=== PATIENT | female | born 1955 | race Caucasian/White ===

== ENCOUNTER 2025-01-07 09:53 | Outpatient (OUT) | payer MEDICARE, SELFPAY ==
--- NOTE | 2025-01-07 09:57 | MM_ITS ---
Patient Name: BORIS JAMES MR#: [id number] : 1955 Exam Date: 01/07/2025 Ordering Doctor: MADHU Knox CNP RADIOLOGY REPORT PROCEDURE: MM TOMOSYNTHESIS SCREENING BI COMPARISON: None. INDICATIONS: Annual screening Calculator Name NCI Breast Cancer Risk Assessment Tool 5 Year Breast Cancer Risk 2.40% Lifetime Breast Cancer Risk 6.60% Personal Breast Cancer No Personal Ovarian Cancer No Treatments None Family Cancers Mother with unknown cancer at age 42; Aunt-maternal with breast cancer at age ~55; Grandmother-maternal with breast cancer at age ~55. LOCATION: [facility] BREAST COMPOSITION: There are scattered areas of fibroglandular density. FINDINGS: RIGHT BREAST: No significant suspicious finding. LEFT BREAST: No significant suspicious finding. There are a few punctate benign-appearing calcifications on the left. DIAGNOSTIC CATEGORY 2--BENIGN FINDING: RECOMMENDATIONS: ROUTINE MAMMOGRAM AND CLINICAL EVALUATION IN 12 MONTHS. PLEASE NOTE: A NORMAL MAMMOGRAM DOES NOT EXCLUDE THE POSSIBILITY OF BREAST CANCER. A CLINICALLY SUSPICIOUS PALPABLE LUMP SHOULD BE BIOPSIED. Dictated by: Renny Olivera MD on 01/08/2025 at 10:05 Approved by: Renny Olivera MD on 01/08/2025 at 10:09
== END 2025-01-07 09:54 | disposition home or self-care (01) ==
LOC: MAMMO 09:53
PROVIDERS: PCP Nurse Practitioner; Visit Provider Nurse Practitioner
DX: Z12.31 Encounter for screening mammogram for malignant neoplasm of breast (principal); Z80.3 Family history of malignant neoplasm of breast
CPT/HCPCS: 77063; 77067

== ENCOUNTER 2025-08-28 08:29 | Outpatient (OUT) | payer MEDICARE, SELFPAY ==
--- OUTSIDE RECORDS SUMMARY | 2025-08-28 08:33 | XMS_ITS | Encounter Summary ---
Author Organization [facility] Address [address] [place] [address] Care Team Providers Care Carboy Filler Name Role Phone Roxie Knox NP Unavailable [phone] Roxie Knox NP Unavailable [phone] John Collier MD Primary Care Provider [phone] Roxie Knox NP Unavailable [phone] Encounter Details Date Type Department Care Team (Late st Contact Info) Description 02/22/2024 Orders Only [facility] [address] [place] [address] Roxie Knox NP [address] [place] [address] Social History Tobacco Use Types Packs/Day Years Used Date Smoking Tobacco: Former Cigarettes 1 25 Smokeless Tobacco: Never Alcohol Use Standard Drinks/Week Comments Yes 1 (1 standard drink = 0.6 oz pur e alcohol) coffee:2cups daily Humiliation, Afraid, Rape, and Kick questionnair e Answer Date Recorded Within the last year, have y ou been afraid of your partner or ex-partner? No 10/23/2023 Within the last year, have y ou been humiliated or emotionally abused in other ways by your partner or ex-partner? No Within the last year, have y ou been kicked, hit, slapped, or otherwise physically hurt by your partner or ex-partner? No 10/23/2023 Within the last year, have y ou been raped or forced to have any kind of sexual activity by your partner or ex-partner? No 10/23/2023 Social Connection and Isolation Panel Answer Date Recorded In a typical week, how many times do you talk on the phone with family, friends, or neighbors? More than three times a week 10/23/2023 How often do you get togethe r with friends or relatives? Once a week 10/23/2023 How often do you attend [facility] or orthodox services? More than 4 times per year 10/23/2023 Do you belong to any clubs o r organizations such as christianity groups, unions, fraternal or athletic groups, or school groups? No 10/23/2023 How often do you attend meet ings of the clubs or organizations you belong to? Never 10/23/2023 Are you , , di vorced, , never , or living with a partner? 10/23/2023 AUDIT-C Answer Date Recorded Q1: How often do you have a drink containing alcohol? Monthly or less 10/23/2023 Q2: How many drinks containi ng alcohol do you have on a typical day when you are drinking? Patient does not drink Q3: How often do you have si x or more drinks on one occasion? Never 10/23/2023 Overall Financial Resource Strain (CARDIA) Answe r Date Recorded How hard is it for you to pa y for the very basics like food, housing, medical care, and heating? Not very hard 10/23/2023 PHQ-2 Answer Date Recorded Patient Health Questionnaire-2 Score 0 02/12/2024 [facility] - Occupational Stress Questionnaire Answer Date Recorded Do you feel stress - tense, restless, nervous, or anxious, or unable to sleep at night because your mind is troubled all the time - these days? Not at all 10/23/2023 Exercise Vital Sign Answer Date Recorde d On average, how many days pe r week do you engage in moderate to strenuous exercise (like a brisk walk)? 4 days 10/23/2023 On average, how many minutes do you engage in exercise at this level? 30 min 10/23/2023 Hunger Vital Sign Answer Date Recorded Within the past 12 months, y ou worried that your food would run out before you got the money to buy more. Never true 10/23/20 Within the past 12 months, t he food you bought just didn't last and you didn't have money to get more. Never true 10/23/2023 PRAPARE - Transportation Answer Date Re corded In the past 12 months, has l ack of transportation kept you from medical appointments or from getting medications? No 10/13 In the past 12 months, has l ack of transportation kept you from meetings, work, or from getting things needed for daily living? No 10/23/2023 Housing Stability Vital Sign Answer Tao e Recorded In the last 12 months, was t here a time when you were not able to pay the mortgage or rent on time? No 10/23/2023 In the last 12 months, how many places have you lived? 1 10/23/2023 In the last 12 months, was t here a time when you did not have a steady place to sleep or slept in a detention (including now)? No 10/23/2023 Comments Unknown Sex and Gender Information Value Date Recorded Sex Assigned at Not on file Legal Sex Female 1:46 PM EDT Gender Identity Not on file Sexual Orientation Not on file documented as of this encounter Plan of Treatment Not on file documented as of this encounter Procedures Procedure Name Priority Date/Time Associated Diagnosis Comments MISCELLANEOUS LAB TEST Routine 02/22/2024 8:57 AM EDT documented in this encounter Results * - Miscellaneous Test (02/22/2024 8:57 AM EDT) us Roxie Knox NP LAB BLOOD ORDERABLES Final Resu lt documented in this encounter Visit Diagnoses Not on filedocumented in this encounter Additional Health Concerns Assessment Noted Time PHQ-9 Depression Total Score: 0 10/30/20 9:34 AM EST documented as of this encounter Care Teams Carboy Filler Relationship Specialty Start Date End Date Roxie Knox NP [address] [place] [address] PCP - Chanell BRISCOE 07/14/23 John Collier MD [address] [place] [address] PCP - General Family Medicine 02/12/24 Roxie Knox NP Nurse Practitioner Family Medicine 07/14/23 Roxie Knox NP Nurse Practitioner Family Medicine 02/12/24 documented as of this encounter
--- OUTSIDE RECORDS SUMMARY | 2025-08-28 08:33 | XMS_ITS | Encounter Summary ---
Author Organization [facility] Address [address] [place] [address] Care Team Providers Care Narcotics Agent Name Role Phone Roxie Knox HISTOLOGICAL ILLUSTRATOR Unavailable [phone] Roxie Knox NP Unavailable [phone] John Collier MD Primary Care Provider [phone] John Collier MD Primary Care Provider [phone] Roxie Knox NP Unavailable [phone] Encounter Details Date Type Department Care Team (Late st Contact Info) Description 10/29/2023 Abstract [facility] [address] [place] [address] Roxie Knox HISTOLOGICAL ILLUSTRATOR [address] [place] [address] Social History Tobacco Use Types Packs/Day Years Used Date Smoking Tobacco: Former Cigarettes 1 25 Humiliation, Afraid, Rape, and Kick questionnair e [...] week 10/23/2023 How often do you attend [facility] or zoroastrianism services? More than 4 times per year 10/23/2023 Do you belong to any clubs o r organizations such as bahai groups, unions, fraternal or athletic groups, or [...] Date Recorded Patient Health Questionnaire-2 Score 0 10/30/2023 [facility] - Occupational Stress [...] money to buy more. Never true 10/23/20 23 Within the past 12 months, t he [...] place to sleep or slept in a retirement (including now)? No 10/23/2023 Comments Unknown Sex and Gender Information Value Date Recorded Sex Assigned at Not on file Legal Sex Female 1:46 PM EDT Gender Identity Not on file Sexual Orientation Not on file documented as of this encounter Functional Status * Over the past 2 weeks, how often have you been bothered by any of the following problems? Question Answer Date of Assessment Author Little interest or pleasure in doing things Not at all 10/30/2023 9:34 AM Sadie Dunbar MA Feeling down, depressed, or hopeless Not at all 10/30/2023 9:34 AM Sadie Dunbar MA Patient Health Questionnaire-2 Score 0 10/30/2023 9:34 AM Brittany Dunbar MA * Question Answer Date of Assessment Author Trouble falling or staying asleep, or sleeping too much Not at all 10/30/2023 9:34 AM Matilda Sung MA Feeling tired or having little energy Not at all 10/30/2023 9:34 AM Sadie Dunbar MA Poor appetite or overeating Not at all 10/30/2023 9: 34 AM Matilda Dunbar MA Feeling bad about yourself - or that you are a failure or have let yourself or your family down Not at all 10/30/2023 9:34 AM Sadie Dunbar MA Trouble concentrating on things, such as reading the newspaper or watching television Not at all 10/30/2023 9:34 AM Sadie Dunbar MA Moving or speaking so slowly that other people could have noticed? Or the opposite - being so fidgety or restless that you have been moving around a lot more than usual. Not at all 10/30/2023 9:34 AM Matilda Silva MA Thoughts that you would be better off or hurting yourself in some way Not at all 10/30/2023 9:34 AM Comfort Dunbar MA Patient Health Questionnaire-9 Score 0 10/30/2023 9:34 AM Brittany Dunbar MA documented as of this encounter Plan of Treatment Not on file documented as of this encounter Visit Diagnoses Not on filedocumented in this encounter Care Teams Narcotics Agent Relationship Specialty Start Date End Date Roxie Knox NP [address] [place] [phone] PCP - Chanell BRISCOE 07/14/23 John Collier MD [address] [place] [address] PCP - General Family Medicine 10/27/23 02/11/24 John Collier MD [address] [place] [phone] PCP - General Family Medicine 02/12/24 Roxie Knox NP Nurse Practitioner Family Medicine 07/14/23 Roxie Knox NP Nurse Practitioner Family Medicine 02/12/24 documented as of this encounter
--- OUTSIDE RECORDS SUMMARY | 2025-08-28 08:34 | XMS_ITS | Clinical Summary ---
Author Organization [facility] Address [address] [place] [address] Care Team Providers Care Professor Of Genetics Name Role Phone Roxie Knox NP Unavailable [phone] Roxie Knox NP Unavailable [phone] John Collier MD Primary Care Provider [phone] Roxie Knox NP Unavailable [phone] Allergies Active Allergy Reactions Criticality Noted Date Comments Irbesartan Cough 10/27/2023 Sertraline Cough 10/27/2023 Medications lansoprazole (Prevacid) [address] capsule Take 15 mg by mouth in the morning. Take before meals. Do not crush or chew.. Active cholecalciferol (Vitamin D-3) 250 MCG (46588 UT) capsule Take 1,000 Units by mouth in the morning. Active ascorbic acid (Vitamin C) 500 MG tablet Take 500 mg by mouth in the morning. Active aspirin 325 MG tablet Take 325 mg by mouth in the morning. Active escitalopram (Lexapro) 10 MG tabletIndications:G AD (generalized anxiety disorder) Take 1 tablet (10 mg) by mouth Daily 90 tablet 5 Active ezetimibe (Zetia) 10 MG tabletIndications:M ixed hyperlipidemia TAKE ONE TABLET BY MOUTH EVERY DAY 90 tablet 5 Active telmisartan (MIcarDIS) 40 MG tabletIndications:P rimary hypertension Take 1 tablet (40 mg) by mouth Daily Take 1 tablet (40 mg) by mouth in the morning. 90 tablet 1 08/1309/23/20 Active rosuvastatin (Crestor) 10 MG tabletIndications:M ixed hyperlipidemia Take 1 tablet (10 mg) by mouth at bedtime 90 tablet 09/24/20 Active Active Problems Problem Noted Date Diagnosed Date Encounter for screening mamm ogram for malignant neoplasm of breast 11/26/2024 Mixed hyperlipidemia 07/30/2024 Assessment & Plan (05/20/2025 6:01 AM EDT): On ezetimibe therapy Check labs yearly and prn dose changes Assessment & Plan (02/17/2025 6:28 AM EDT): On statin therapy Check labs yearly and prn dose changes Assessment & Plan (01/06/2025 6:30 AM EST): Remain off of cholesterol med Dietary changes Check labs 02/04 Assessment & Plan (11/26/2024 6:34 AM EST): Remain off of cholesterol med Dietary changes Check labs 02/04 Assessment & Plan (07/30/2024 10:42 AM EDT): Remain off of cholesterol med Hand out on foods to help lower cholesterol Check labs 02/04 EFRAIN (generalized anxiety disorder) 06/18/2024 Overview (11/26/2024): PHQ 9= 11/26/24 3 EFRAIN 7= 11/26/24 3 Assessment & Plan (05/20/2025 6:02 AM EDT): Current treatment: escitalopram Assessment & Plan (02/17/2025 9:36 AM EDT): Is currently taking escitalopram daily Feels pretty good Assessment & Plan (01/06/2025 10:21 AM EST): Stopped buspar d/t side effects Is current taking escitalopram daily Fu in 6 weeks again to reassure no further ongoing falls etc. Assessment & Plan (11/26/2024 10:56 AM EST): PHQ 9 score = 4 EFRAIN 7 score= 3 Current meds: buspirone and just started escitalopram on 11/23/24 Bad dreams stopped when fluoxetine Take medication only as directed. This medication will take approximately 4-6 weeks to become effective. If any suicidal thoughts, thoughts of hurting others, or hallucinations contact the office or proceed to the Emergency Room for mental health evaluation. Medication may cause dry mouth, dizziness, and in some cases worsening in depression symptoms. Please contact the office if these occur. Assessment & Plan (10/29/2024 10:01 AM EST): Will increase fluoxetine to 20mg daily Add buspar BID, sent mail order and will call in to [facility] for 2 week supply until mail order comes Fu in 4 weeks, will call her in 2 weeks Discussed stressors and impact they are having, had great response initially until around thanksgiving which is when started getting these worsening in symptoms Relaxation, exercise Assessment & Plan (07/30/2024 10:41 AM EDT): Will continue with fluoxetine Fu in 3 months Assessment & Plan (06/18/2024 10:06 AM EDT): Will start fluoxetine at 10mg Did well on sertraline in the past, but caused cough Take medication only as directed. This medication will take approximately 4-6 weeks to become effective. If any suicidal thoughts, thoughts of hurting others, or hallucinations contact the office or proceed to the Emergency Room for mental health evaluation. Medication may cause dry mouth, dizziness, and in some cases worsening in depression symptoms. Please contact the office if these occur. Fu in 6 weeks Ganglion cyst of finger of left hand 10/30/2023 Assessment & Plan (10/30/2023 10:13 AM EST): Offered pt referral to Ortho, at this time she is asymptomatic will observe DDD (degenerative disc disease), lumbar 10/30/20 Assessment & Plan (10/30/2023 10:14 AM EST): Offered PT and Xray, declined at this time Encounter for annual wellnes s visit (AWV) in Medicare patient 10/30/2023 Assessment & Plan (11/26/2024 6:33 AM EST): .Reviewed Ht/Wt/BMI Recommend eye exam yearly Recommend dental exams twice a year Balance work/leisure activities Exercises is recommended most days of the week (appropriate as chronic conditions allow) Follow up yearly and prn Assessment & Plan (10/30/2023 10:16 AM EST): .Reviewed Ht/Wt/BMI Recommend eye exam yearly Recommend dental exams twice a year Balance work/leisure activities Exercises is recommended most days of the week (appropriate as chronic conditions allow) Follow up yearly and prn HTN (hypertension) 10/27/2023 Assessment & Plan (05/20/2025 6:00 AM EDT): Please check blood pressure daily and record DASH diet Limit caffeine Take medication as directed Contact office if chest pain, pressure, dizziness, shortness of breath, swelling legs Recommend slow position changes Current meds: telmisartan Assessment & Plan (02/17/2025 6:25 AM EDT): Please check blood pressure daily and record DASH diet Limit caffeine Take medication as directed Contact office if chest pain, pressure, dizziness, shortness of breath, swelling legs Recommend slow position changes Current meds: telmisartan Assessment & Plan (01/06/2025 6:28 AM EST): Please check blood pressure daily and record DASH diet Limit caffeine Take medication as directed Contact office if chest pain, pressure, dizziness, shortness of breath, swelling legs Recommend slow position changes Current meds: telmisartan Assessment & Plan (11/26/2024 6:33 AM EST): Please check blood pressure daily and record DASH diet Limit caffeine Take medication as directed Contact office if chest pain, pressure, dizziness, shortness of breath, swelling legs Recommend slow position changes Current meds: telmisartan Assessment & Plan (07/30/2024 10:40 AM EDT): Stable at this time no changes to med/doses Assessment & Plan (06/18/2024 10:05 AM EDT): Stable no changes in med/dose Assessment & Plan (05/14/2024 11:11 AM EDT): Stable on current medications, recommend low sodium intake Fu in 4 months Assessment & Plan (02/12/2024 9:41 AM EDT): Stable on current medications, recommend low sodium intake Fu in 4 months Resolved Problems Problem Noted Date Diagnosed Date Resolved Date UTI symptoms 01/13/2025 05/20/2025 Colon cancer screening 02/12/202405/14 Assessment & Plan (02/12/2024 9:42 AM EDT): After 04/13/24 due for cologuard test Will send order now Cannot do colonoscopy secondary to not having a ride to get it done Hypercholesterolemia 10/27/2023 024 Assessment & Plan (06/18/2024 10:06 AM EDT): Consider at fu appt to trial zetia Assessment & Plan (05/14/2024 11:12 AM EDT): Unclear if her side effects that she describes are truly related to med side effect, none the less, we will temporarily stop her statin for the next 4 weeks to see if sxs resolve, if they do we can consider trial of a different statin drug Fu in 4 weeks Assessment & Plan (02/12/2024 9:41 AM EDT): Has been taking meds as directed, trying lower fat options Will recheck labs Titrate meds as needed Encounters Date Type Department Care Team Description 06/26/2025 Results Follow-Up [facility] [address] [place] [address] Matilda Miranda MA Lipid panel, ALT, AST 06/26/2025 Refill [facility] [address] [phone] Roxie Knox NP Mixed hyperlipidemia (Primary Dx) 06/25/2025 Refill [facility] [address] [place] [address] Roxie Knox NP Primary hypertension from Last 3 Months Family History Medical History Relation Name Comments Cancer Mother Relation Name Status Comments Mother Social History Tobacco Use Types Packs/Day Years Used Date Smoking Tobacco: Former Cigarettes 1 25 Smokeless Tobacco: Never Tobacco Cessation:Counseling Given: Not Answered Alcohol Use Standard Drinks/Week Comments Yes 1 (1 standard drink = 0.6 oz pur e alcohol) coffee:2cups daily B1300 Health Literacy Answer Date Recor ded How often do you need to hav e someone help you when you read instructions, pamphlets, or other written material from your doctor or pharmacy? Never 11/19/2024 Humiliation, Afraid, Rape, and Kick questionnair e [...] neighbors? More than three times a week 11/19/2024 How often do you get togethe r with friends or relatives? Once a week 11/19/2024 How often do you attend chur or rastafarian services? More than 4 times per year 11/19/2024 Do you belong to any clubs o r organizations such as baptist groups, unions, fraternal or athletic groups, or school groups? No 11/19/2024 How often do you attend meet ings of the clubs or organizations you belong to? Never 11/19/2024 Are you , , di vorced, , never , or living with a partner? 11/19/2024 AUDIT-C Answer Date Recorded Q1: How often do you have a drink containing alcohol? 4 or more times a week 11/19/2024 Q2: How many drinks containi ng alcohol do you have on a typical day when you are drinking? 1 or 2 Q3: How often do you have si x or more drinks on one occasion? Less than monthly 11/19/2024 Overall Financial Resource Strain (CARDIA) Answe r Date Recorded How hard is it for you to pa y for the very basics like food, housing, medical care, and heating? Not very hard 11/19/2024 PHQ-2 Answer Date Recorded Patient Health Questionnaire-2 Score 0 11/26/2024 [facility] - Occupational Stress Questionnaire Answer Date Recorded Do you feel stress - tense, restless, nervous, or anxious, or unable to sleep at night because your mind is troubled all the time - these days? Very much 11/19/2024 Exercise Vital Sign Answer Date Recorde d On average, how many days pe r week do you engage in moderate to strenuous exercise (like a brisk walk)? 5 days 11/19/2024 On average, how many minutes do you engage in exercise at this level? 50 min 11/19/2024 Hunger Vital Sign Answer Date Recorded Within the past 12 months, y ou worried that your food would run out before you got the money to buy more. Never true 11/19/19 25 Within the past 12 months, t he food you bought just didn't last and you didn't have money to get more. Never true 11/19/2024 PRAPARE - Transportation Answer Date Re corded In the past 12 months, has l ack of transportation kept you from medical appointments or from getting medications? No 05/2025 In the past 12 months, has l ack of transportation kept you from meetings, work, or from getting things needed for daily living? No 11/19/2024 Housing Stability Vital Sign Answer Tao e [...] place to sleep or slept in a snf (including now)? No 10/23/2023 Housing Stability Vital Sign Answer Tao e Recorded In the last 12 months, was t here a time when you were not able to pay the mortgage or rent on time? No 11/19/2024 In the past 12 months, how m any times have you moved where you were living? 0 11/19/2024 At any time in the past 12 m [facility], were you homeless or living in a snf (including now)? No 11/19/2024 Comments Unknown Sex and Gender Information Value Date Recorded Sex Assigned at Not on file Legal Sex Female 1:46 PM EDT Gender Identity Not on file Sexual Orientation Not on file Last Filed Vital Signs Vital Sign Reading Time Taken Comments Blood Pressure 140/76 05/20/2025 9:29 AM EDT Pulse 76 05/20/2025 9:29 AM EDT Temperature 36.9 C (98.5 F) 05/20/2025 9:29 AM EDT Respiratory Rate 18 05/20/2025 9:29 AM EDT Oxygen Saturation 98% 05/20/2025 9:29 AM EDT Inhaled Oxygen Concentration - - Weight 78.7 kg (173 lb 9.6 oz) 05/20/2025 9:29 A M EDT Height 172.7 cm (5' 8 ) 11/26/2024 10:10 AM EST Body Mass Index 26.4 11/26/2024 10:10 AM EST Plan of Treatment Health Maintenance Due Date Last Done Comments CT Colonography 1955 Colonoscopy 1955 FIT 1955 FOBT 1955 Sigmoidoscopy 1955 Medicare Annual Wellness (AWV) 11/26/2025 11/26/2024, 11/26/2024, 10/30/2023, Additional history exists Pneumococcal Vaccine: 65+ Years (1 of 1 - PCV) 11/26/2025 Postponed from 2003 (Patient Refused) Mammogram 01/08/2026 01/08/2025, 10/13 (Patient Refused) Colorectal Cancer Screening 02/25/2027 FIT-DNA 02/25/2027 02/26/2024, 06/11/2020, 04/13/2021 Influenza Vaccine Discontinued Procedures Procedure Name Priority Date/Time Associated Diagnosis Comments AST Routine 06/20/2025 8:44 AM EDT Mixed hyperlipidemia ALT Routine 06/20/2025 8:44 AM EDT Mixed hyperlipidemia LIPID PANEL Routine 06/20/2025 8:44 AM EDT Mixed hyperlipidemia MM TOMOSYNTHESIS SCREENING BI 01/08/2025 10:09 AM EST LAB COLOGUARD COLON CANCER SCREEN Routine 02/26/2024 5:50 AM EDT Colon cancer screening from Last 3 Months or Most Recently Relevant to Health Maintenance Results * ALT (06/20/2025 8:44 AM EDT) ALT 13 6 - 29 U/L [facility] Blood Venous blood specimen / Unknown 06/20/2025 8:44 AM EDT 06/20/2025 3:04 PM EDT Narrative [facility] - 06/21/2025 3:25 AM EDT FASTING:YES FASTING: YES Resulting Agency Comment Performing Organization Information Site ID: QTW Name: [facility] Address: [address] [place] [id number] Director: Maday Hilario us Roxie Knox NP LAB BLOOD ORDERABLES Final Resu lt [facility] * AST (06/20/2025 8:44 AM EDT) AST 20 10 - 35 U/L [facility] Blood Venous blood specimen / Unknown 06/20/2025 8:44 AM EDT 06/20/2025 3:04 PM EDT Narrative [facility] - 06/21/2025 3:25 AM EDT FASTING:YES FASTING: YES Resulting Agency Comment Performing Organization Information Site ID: QTW Name: [facility] Address: [place] [address] Director: Maday Hilario us Roxie Knox [employer]IMARY SCHOOL TEACHER LAB BLOOD ORDERABLES Final Resu lt [facility] * (ABNORMAL) Lipid panel (06/20/2025 8:44 AM EDT) CHOLESTEROL, TOTAL 284(H) <200 mg/dL [facility] HDL CHOLESTEROL 98 > OR = 50 mg/dL [facility] TRIGLYCERIDES 93 <150 mg/dL [facility] LDL CHOLESTEROL 166(H) mg/dL (calc) [facility] Comment: Reference range: <100 Desirable range <100 mg/dL for primary prevention; <70 mg/dL for patients with CHD or diabetic patients with > or = 2 CHD risk factors. LDL-C is now calculated using the Akash-Cooley calculation, which is a validated novel method providing better accuracy than the Friedewald equation in the estimation of LDL-C. Akash SS et al. SOPHY. 2013;310(19): 8440-2773 (http://education.[employer] [facility]/faq/LFA434) CHOL/HDLC RATIO 2.9 <5.0 (calc) [facility] NON HDL CHOLESTEROL 186(H) <130 mg/dL (calc) [facility] Comment: For patients with diabetes plus 1 major ASCVD risk factor, treating to a non-HDL-C goal of <100 mg/dL (LDL-C of <70 mg/dL) is considered a therapeutic option. Blood Venous blood specimen / Unknown 06/20/2025 8:44 AM EDT 06/20/2025 3:04 PM EDT Narrative [facility] - 06/21/2025 3:25 AM EDT FASTING:YES FASTING: YES Resulting Agency Comment Performing Organization Information Site ID: QPT Name: [facility] Address: [address] [place] [address] Director: Alex Peters MD us Roxie Knox NP LAB BLOOD ORDERABLES Final Resu lt [facility] * MM TOMOSYNTHESIS SCREENING BI (01/08/2025 10:09 AM EST) Anatomical Region Laterality Modality Other 01/08/2025 10:0 9 AM EST Narrative 01/08/2025 10:10 [place] [address] Mammography Report Signed Patient: BEATRICE JAMES MR#: [id number] : 1955 Acct:[id number] Age/Sex: 69 / F ADM Date: 01/07/25 Loc: MAMMO Attending Dr: Roxie Knox NP Ordering Physician: Roxie Knox NP Results: Date of Service: 01/07/25 Follow Up: Procedure(s): MM tomosynthesis screening BI Accession Number(s): [id number] cc: Roxie Knox NP Patient Name: BEATRICE JAMES MR#: [id number] : 1955 Exam Date: 01/07/2025 Ordering Doctor: MADHU Knox CNP RADIOLOGY REPORT PROCEDURE: MM TOMOSYNTHESIS SCREENING BI COMPARISON: None. INDICATIONS: Annual screening Calculator Name NCI Breast Cancer Risk Assessment Tool 5 Year Breast Cancer Risk 2.40% Lifetime Breast Cancer Risk 6.60% Personal Breast Cancer No Personal Ovarian Cancer No Treatments None Family Cancers Mother with unknown cancer at age 42; Aunt-maternal with breast cancer at age 55; Grandmother-maternal with breast cancer at age 55. LOCATION: [facility] BREAST COMPOSITION: There are scattered areas of fibroglandular density. FINDINGS: RIGHT BREAST: No significant suspicious finding. LEFT BREAST: No significant suspicious finding. There are a few punctate benign-appearing calcifications on the left. DIAGNOSTIC CATEGORY 2--BENIGN FINDING: RECOMMENDATIONS: ROUTINE MAMMOGRAM AND CLINICAL EVALUATION IN 12 MONTHS. PLEASE NOTE: A NORMAL MAMMOGRAM DOES NOT EXCLUDE THE POSSIBILITY OF BREAST CANCER. A CLINICALLY SUSPICIOUS PALPABLE LUMP SHOULD BE BIOPSIED. Dictated by: Renny Olivera MD on 01/08/2025 at 10:05 Approved by: Renny Olivera MD on 01/08/2025 at 10:09 Dictated By: Renny Olivera M.D. Signed By: 01/08/25 1010 DD/ 1009 TD/TT: Ginger Farmer: Procedure Note Radiology, Radiologist, MD - 01/08/2025 [place] [address] Mammography Report Signed Patient: BEATRICE JAMES AMR#: [id number] : 1955cct:[id number] Age/Sex: 69 / FADM Date: 01/07/25 Loc: MAMMO Attending Dr: Roxie Knox NP Ordering Physician: Roxie Knox NPResults: Date of Service: 01/07/25Follow Up: Procedure(s): MM tomosynthesis screening BI Accession Number(s): [id number] cc: Roxei Knox NP Patient Name: BEATRICE JAMES MR#: [id number] : 1955 Exam Date: 01/07/2025 Ordering Doctor: MADHU Knox CNP RADIOLOGY REPORT PROCEDURE: MM TOMOSYNTHESIS SCREENING BI COMPARISON: None. INDICATIONS: Annual screening Calculator Name NCI Breast Cancer Risk Assessment Tool 5 Year Breast Cancer Risk 2.40% Lifetime Breast Cancer Risk 6.60% Personal Breast Cancer No Personal Ovarian Cancer No Treatments None Family Cancers Mother with unknown cancer at age 42; Aunt-maternalwith breast cancer at age 55; Grandmother-maternal with breast cancer at age 55. LOCATION: [facility] BREAST COMPOSITION: There are scattered areas of fibroglandulardensity. FINDINGS: RIGHT BREAST: No significant suspicious finding. LEFT BREAST: No significant suspicious finding. There are a few punctate benign-appearing calcifications on the left. DIAGNOSTIC CATEGORY 2--BENIGN FINDING: RECOMMENDATIONS: ROUTINE MAMMOGRAM AND CLINICAL EVALUATION IN 12 MONTHS. PLEASE NOTE: A NORMAL MAMMOGRAM DOES NOT EXCLUDE THE POSSIBILITY OFBREAST CANCER. A CLINICALLY SUSPICIOUS PALPABLE LUMP SHOULD BE BIOPSIED. Dictated by: Renny Olivera MD on 01/08/2025 at 10:05 Approved by: Renny Olivera MD on 01/08/2025 at 10:09 Dictated By: Renny Olivera M.D. Signed By:01/08/25 1010 DD/ 1009 TD/TT: Ginger Farmer: us Roxie Lisette [facility] Final Result * Cologuard?? colon cancer screening (02/26/2024 5:50 AM EDT) NONINV COLON CA DNA+OCC BLD SCRN STL-IMP Negative Negative 03/05/2024 1:40 PM EDT [facility] (CLIA #:[id number]) Comment: NEGATIVE TEST RESULT. A negative Cologuard result indicates a low likelihood that a colorectal cancer (CRC) or advanced adenoma (adenomatous polyps with more advanced pre-malignant features) is present. The chance that a person with a negative Cologuard test has a colorectal cancer is less than 1 in 1500 (negative predictive value >99.9%) or has an advanced adenoma is less than 5.3% (negative predictive value 94.7%). These data are based on a prospective cross-sectional study of 10,000 individuals at average risk for colorectal cancer who were screened with both Cologuard and colonoscopy. (Myrna Barnhart al, N Engl J Med 2014;370(14):8617-6808) The normal value (reference range) for this assay is negative. COLOGUARD RE-SCREENING RECOMMENDATION: Periodic colorectal cancer screening is an important part of preventive healthcare for asymptomatic individuals at average risk for colorectal cancer. Following a negative Cologuard result, the [place] Cancer Society and U.S. Multi-Society Task Force screening guidelines recommend a Cologuard re-screening interval of 3 years. References: [place] Cancer Society Guideline for Colorectal Cancer Screening: https://www.cancer.org/cancer/daaym-khvgxd-vyerpn/yzkysioep-uxjfumdzy-lvsblez/ac s-rec ommendations.html.; Carlos DK, Mendoza CR, Jurgen CHERRY, Colorectal Cancer Screening: Recommendations for Physicians and Patients from the U.S. Multi-Society Task Force on Colorectal Cancer Screening , Am J Gastroenterology 2017; 112:0840-3832. TEST DESCRIPTION: Composite algorithmic analysis of stool DNA-biomarkers with hemoglobin immunoassay. Quantitative values of individual biomarkers are not reportable and are not associated with individual biomarker result reference ranges. Cologuard is intended for colorectal cancer screening of adults of either sex, 45 years or older, who are at average-risk for colorectal cancer (CRC). Cologuard has been approved for use by the U.S. FDA. The performance of Cologuard was established in a cross sectional study of average-risk adults aged 50-84. Cologuard performance in patients ages 45 to 49 years was estimated by sub-group analysis of near-age groups. Colonoscopies performed for a positive result may find as the most clinically significant lesion: colorectal cancer [4.0%], advanced adenoma (including sessile serrated polyps greater than or equal to 1cm diameter) [20%] or non- advanced adenoma [31%]; or no colorectal neoplasia [45%]. These estimates are derived from a prospective cross-sectional screening study of 10,000 individuals at average risk for colorectal cancer who were screened with both Cologuard and colonoscopy. (Myrna Hunter. et al, N Engl J Med 2014;370(14):2632-9272.) Cologuard may produce a false negative or false positive result (no colorectal cancer or precancerous polyp present at colonoscopy follow up). A negative Cologuard test result does not guarantee the absence of CRC or advanced adenoma (pre-cancer). The current Cologuard screening interval is every 3 years. ([place] Cancer Society and U.S. Multi-Society Task Force). Cologuard performance data in a 10,000 patient pivotal study using colonoscopy as the reference method can be accessed at the following location: www.[employer].com/results. Additional description of the Cologuard test process, warnings and precautions can be found at www.[email or web address] Mediard.com. Stool specimen (specimen) 02/26/2024 5:50 AM EDT 02/28/2024 9:10 AM EDT us Roxie Aichholz PRIMARY SCHOOL TEACHER LAB MOLECULAR DIAGNOSTICS ORDER GABE Final Result .[facility] (CLIA #:[id number]) [address] [id number] [phone] [facility] (CLIA #:[id number]) [address] [address] from Last 3 Months or Most Recently Relevant to Health Maintenance Insurance [employer] MEDICARE Care Teams Professor Of Genetics Relationship Specialty Start Date End Date Roxie Knox NP [address] [place] [id number] PCP - Chanell BRISCOE 07/14/23 John Collier MD [address] [place] [phone] PCP - General Family Medicine 02/12/24 Roxie Knox NP Nurse Practitioner Family Medicine 07/14/23 Roxie Knox NP Nurse Practitioner Family Medicine 02/12/24
--- OUTSIDE RECORDS SUMMARY | 2025-08-28 08:34 | XMS_ITS | Encounter Summary ---
Author Organization [facility] Address [address] [place] [address] Care Team Providers Care Benefits Consulting Analyst Name Role Phone Roxie Knox REVENUE SPECIALIST Unavailable [phone] Roxie Knox NP Unavailable [phone] John Collier MD Primary Care Provider [phone] John Collier MD Primary Care Provider [phone] Roxie Knox NP Unavailable [phone] Reason for Visit * Reason Onset Date Comments Med Refill 11/30/2023 Encounter Details Date Type Department Care Team (Late st Contact Info) Description 11/30/2023 Refill [facility] [address] [place] [address] Roxie Knox REVENUE SPECIALIST [address] [place] [id number] Hypercholesterolemia Social History Tobacco Use Types Packs/Day Years [...] week 10/23/2023 How often do you attend [facility] or evangelical services? More than 4 times per year 10/23/2023 Do you belong to any clubs o r organizations such as gnosticist groups, unions, fraternal or athletic groups, or [...] Recorded Patient Health Questionnaire-2 Score 0 10/30/2023 [facility] ional [facility] - Occupational Stress [...] place to sleep or slept in a long-term (including now)? No 10/23/2023 Comments Unknown Sex and Gender Information Value Date Recorded Sex Assigned at Not on file Legal Sex Female 1:46 PM EDT Gender Identity Not on file Sexual Orientation Not on file documented as of this encounter Miscellaneous Notes * Telephone Encounter - Roxie Knox NP - 12/03/2023 9:51 PM EST Already completed * Telephone Encounter - Matilda Miranda MA - 11/30/2023 2:10 PM EST Pt called to let us know the [facility] has changed their fax number to [phone] documented in this encounter Plan of Treatment Not on file documented as of this encounter Visit Diagnoses Diagnosis Hypercholesterolemia Pure hypercholesterolemia documented in this encounter Additional Health Concerns Assessment Noted Time PHQ-9 Depression Total Score: 0 10/30/20 9:34 AM EST documented as of this encounter Care Teams Benefits Consulting Analyst Relationship Specialty Start Date End Date Roxie Knox NP [address] [place] [address] PCP - Chanell [place] 07/14/23 John Collier MD [address] [place] [id number] PCP - General Family Medicine 10/27/23 02/11/24 John Collier MD [address] [place] [id number] PCP - General Family Medicine 02/12/24 Roxie Knox NP Nurse Practitioner Family Medicine 07/14/23 Roxie Knox NP Nurse Practitioner Family Medicine 02/12/24 documented as of this encounter
--- OUTSIDE RECORDS SUMMARY | 2025-08-28 08:34 | XMS_ITS | Encounter Summary ---
Author Organization [facility] Address [address] [place] [address] Care Team Providers Care Pbx Inspector Name Role Phone Roxie Knox DIRECTOR HUMAN SERVICES Unavailable [phone] Roxie Knox NP Unavailable [phone] John Collier MD Primary Care Provider [phone] Roxie Knox NP Unavailable [phone] Encounter Details Date Type Department Care Team (Late st Contact Info) Description 06/26/2025 Results Follow-Up [facility] [address] [place] [address] Matilda Miranda MA Lipid panel, ALT, AST Social History Tobacco Use Types Packs/Day Years [...] How often do you attend chur or latter day services? More than 4 times per year 11/19/2024 Do you belong to any clubs o r organizations such as evangelical groups, unions, fraternal or athletic groups, or [...] Recorded Patient Health Questionnaire-2 Score 0 11/26/2024 [facility] - [facility]ational Stress Questionnaire Answer [...] money to buy more. Never true 11/19/19 Within the past 12 months, t he [...] place to sleep or slept in a senior living (including now)? No 10/23/2023 Housing Stability Vital Sign Answer Tao e Recorded In the last 12 months, was t here a time when you were not able to pay the mortgage or rent on time? No 11/19/2024 In the past 12 months, how m any times have you moved where you were living? 0 11/19/2024 At any time in the past [address] [facility], were you homeless or living in a senior living (including now)? No 11/19/2024 Comments Unknown Sex [...] Assessment Noted Time PHQ-9 Depression Total Score: 3 11/26/19 25 10:12 AM EST documented as of this encounter Care Teams Pbx Inspector Relationship Specialty Start Date End Date Roxie Knox NP [address] [address] PCP - Chanell BRISCOE 07/14/23 John Collier MD [address] [place] [phone] PCP - General Family Medicine 02/12/24 Roxie Knox NP Nurse Practitioner Family Medicine 07/14/23 Roxie Knox NP Nurse Practitioner Family Medicine 02/12/24 documented as of this encounter
--- OUTSIDE RECORDS SUMMARY | 2025-08-28 08:36 | XMS_ITS | CCD ---
Author Organization [facility] Care Team Providers Care Chain Sales Representative Name Role Phone HOUSE, DR GREER Admitting Unavailable HOUSE, DR GREER Attending Unavailable HOUSE, DR GREER Consulting Unavailable HOUSE, DR GREER Primary Care Unavailable HOUSE, DR GREER Admitting Unavailable HOUSE, DR GREER Attending Unavailable HOUSE, DR GREER Consulting Unavailable Aichholz CERTIFIED MASTER SAFE TECHNICIAN, Roxie Unavailable Aichholz CERTIFIED MASTER SAFE TECHNICIAN, Roxie Unavailable John Collier MD Primary Care Provider Aichholz CERTIFIED MASTER SAFE TECHNICIAN, Roxie Unavailable John Collier MD Primary Care Provider Aichholz CERTIFIED MASTER SAFE TECHNICIAN, Roxie Unavailable AICHHOLZ, ROXIE Attending Unavailable AICHHOLZ, ROXIE Attending Unavailable AICHHOLZ, ROXIE Attending Unavailable AICHHOLZ, ROXIE Attending Unavailable AICHHOLZ, ROXIE Attending Unavailable AICHHOLZ, ROXIE Attending Unavailable AICHHOLZ, ROXIE Attending Unavailable Aichholz CERTIFIED MASTER SAFE TECHNICIAN-CRoxie Primary Care Provider Lisette CERTIFIED MASTER SAFE TECHNICIAN-CRoxie Attending Provider [phone] Allergies Allergy Classification Reported Allergen(s) Allergy Type Date of Onset Reaction(s) Facility (20 sources) Irbesartan Propensity to adverse reactions 3 Cough [facility] (20 sources) Sertraline Drug Allergy 3 Cough [facility] Medications Current Medications Medication Drug Class(es) Dates Sig (Normalized) Sig (Original) atorvastatin 40 mg oral tablet (4 sources) HMG-CoA Reductase Inhibitor Start: 12-25-2023 End: 03-25-2024 take 1 tablet by mouth in the morning atorvastatin (Lipitor) 40 MG tablet Indications: Hypercholesterolemia (CMS/HCC) Take 1 tablet (40 mg) by mouth in the morning. 90 tablet 1 12/26/2023 03/25/2024 Active Start: 11-30-2023 End: 12-25-2023 take 1 tablet by mouth at bedtime atorvastatin (Lipitor) 20 MG tablet Indications: Hypercholesterolemia (CMS/HCC) Take 1 tablet (20 mg) by mouth at bedtime Take 20 mg by mouth at bedtime 90 tablet 0 11/30/2023 12/25/2023 Discontinued (Ineffective) biotin 5 mg chewable tablet (1 source) Start: 08-20-2025 Biotin 5,000 mcg tablet,chewable Active MCG PO August 20, 2025 12:00am Complies with drug therapy busPIRone hydrochloride 5 mg oral tablet (8 sources) Start: 10-29-2024 End: 01-27-2025 take 1 tablet by mouth in the morning busPIRone (Buspar) 5 MG tablet Indications: EFRAIN (generalized anxiety disorder) (CMS/HCC) Take 1 tablet (5 mg) by mouth in the morning and 1 tablet (5 mg) before bedtime. 180 tablet 10/29/2024 01/06/2025 Discontinued (Side effects) calcium carbonate 1500 mg / cholecalciferol 0.01 mg oral capsule (1 source) Vitamin D Start: 08-20-2025 take 1 capsule by mouth twice daily Calcium Carbonate-Vitamin D3 600 mg-10 mcg (400 unit) capsule Active 1 CAP PO Twice daily August 20, 2025 12:00am Complies with drug therapy cholecalciferol 0.25 mg oral capsule (20 sources) Vitamin D take 1 capsule by mouth in the morning cholecalciferol (Vitamin D-3) 250 MCG (74246 UT) capsule Take 1,000 Units by mouth in the morning. Active escitalopram 10 mg oral tablet (20 sources) Serotonin Reuptake Inhibitor Start: 08-16-2025 take 1 tablet by mouth once daily Escitalopram Oxalate 10 mg tablet Active 10 MG PO Daily August 16, 2025 12:00am Complies with drug therapy Start: 11-18-2024 End: 08-03-2025 take 1 tablet by mouth once daily escitalopram (Lexapro) 10 MG tablet Indications: EFRAIN (generalized anxiety disorder) Take 1 tablet (10 mg) by mouth Daily 90 tablet 05/05/2025 08/03/2025 Active ezetimibe 10 mg oral tablet (17 sources) Dietary Cholesterol Absorption Inhibitor Start: 08-16-2025 take 1 tablet by mouth once daily Ezetimibe 10 mg tablet Active 10 MG PO Daily August 16, 2025 12:00am Complies with drug therapy Start: 05-18-2025 take 1 tablet by jose th once daily ezetimibe (Zetia) 10 MG tablet Indications: Mixed hyperlipidemia TAKE ONE TABLET BY MOUTH EVERY DAY 90 tablet 05/18/2025 Active Start: 01-13-2025 End: 04-13-2025 take 1 tablet by mouth once daily ezetimibe (Zetia) 10 MG tablet Indications: Mixed hyperlipidemia Take 1 tablet (10 mg) by mouth Daily 90 tablet 01/13/2025 Active FLUoxetine 20 mg oral capsule (14 sources) Serotonin Reuptake Inhibitor Start: 10-29-2024 End: 01-27-2025 take 1 capsule by mouth once daily FLUoxetine (PROzac) 20 MG capsule Indications: EFRAIN (generalized anxiety disorder) (CMS/HCC) Take 1 capsule (20 mg) by mouth Daily 90 capsule 10/29/2024 11/26/2024 Discontinued (Therapy completed) Start: 06-18-2024 End: 10-29-2024 take 1 capsule by mouth once daily FLUoxetine (PROzac) 10 MG capsule Indications: EFRAIN (generalized anxiety disorder) (CMS/HCC) Take 1 capsule (10 mg) by mouth Daily 90 capsule 07/30/2024 10/29/2024 Discontinued lansoprazole 15 mg delayed release oral capsule (20 sources) Proton Pump Inhibitor Start: 08-16-2025 take 1 capsule by mouth once daily Lansoprazole 15 mg capsule,delayed release(DR/EC) Active 15 MG PO Daily August 16, 2025 12:00am Complies with drug therapy take 1 capsule by mouth before m ealtime lansoprazole (Prevacid) [address] capsule Take 15 mg by mouth in the morning. Take before meals. Do not crush or chew.. Active magnesium citrate 100 mg oral tablet (1 source) Start: 08-20-2025 take 2 capsules by mouth once daily as needed Magnesium Citrate 100 mg capsule Active 200 MG PO Daily as needed August 20, 2025 12:00am celina Complies with drug therapy Multivitamin tablet (1 source) Start: 08-20-2025 take 1 tablet by mouth once daily Multivitamin tablet Active 1 TAB PO Daily August 20, 2025 12:00am Complies with drug therapy prasterone 50 mg oral capsule (20 sources) End: 02-17-2025 take 1 capsule by mouth once daily Prasterone, DHEA, (DHEA 50) 50 MG capsule Take 50 mg by mouth 1 (one) time each day 02/17/2025 Discontinued (Therapy completed) rosuvastatin calcium 10 mg oral tablet (2 sources) HMG-CoA Reductase Inhibitor Start: 06-26-2025 End: 09-24-2025 take 1 tablet by mouth once daily Rosuvastatin 10 mg tablet Active 10 MG PO Daily August 16, 2025 12:00am Complies with drug therapy sulfamethoxazole 800 mg / trimethoprim 160 mg oral tablet (3 sources) Dihydrofolate Reductase Inhibitor Antibacterial, Sulfonamide Antimicrobial Start: 01-13-2025 End: 01-19-2025 take 1 tablet by mouth once sulfamethoxazole- trimethoprim (Bactrim DS) 800-160 MG per tablet Indications: UTI symptoms Take 1 tablet by mouth every 12 (twelve) hours for 5 days 10 tablet 01/14/2025 01/19/2025 Active telmisartan 40 mg oral tablet (20 sources) Angiotensin 2 Receptor Lizbeth Start: 06-18-2024 End: 09-23-2025 take 1 tablet by mouth once daily Telmisartan 40 mg tablet Active 40 MG PO Daily August 16, 2025 12:00am Complies with drug therapy Start: 10-30-2023 End: 01-28-2024 take 1 tablet by mouth in the morning telmisartan (MIcarDIS) 40 MG tablet Indications: Primary hypertension (CMS/HCC) Take 1 tablet (40 mg) by mouth in the morning. 30 tablet 1 10/30/2023 01/28/2024 Active Completed/Discontinued Medications Medication Drug Class(es) Dates Sig (Normalized) Sig (Original) ascorbic acid 500 mg oral tablet (20 sources) Vitamin C Start: 08-16-2025 End: 08-20-2025 take 1 tablet by mouth once daily Ascorbic Acid (Vitamin C) 500 mg tablet Discontinued 500 MG PO Daily August 16, 2025 12:00am August 20, 2025 9:50am take 1 tablet by mouth in the mo rning ascorbic acid (Vitamin C) 500 MG tablet Take 500 mg by mouth in the morning. Active aspirin 325 mg oral tablet (20 sources) Platelet Aggregation Inhibitor, Nonsteroidal Anti-inflammatory Drug Start: 08-16-2025 End: 08-20-2025 take 1 tablet by mouth once daily Aspirin 325 mg tablet Discontinued 325 MG PO Daily August 16, 2025 12:00am August 20, 2025 9:49am take 1 tablet by mouth in the mo rning aspirin 325 MG tablet Take 325 mg by mouth in the morning. Active Problems Active Problems Problem Classification Problem Date Documented Date Episodic/Chronic Anxiety disorders (20 sources) Generalized anxiety disorder; Translations: [Generalized anxiety disorder] Onset: 06-18-2024 06-18-2024 Chronic Disorders of lipid metabolism (20 sources) Hyperlipidemia, unspecified; Translations: [Hypercholesterolemia ] Onset: 04-01-2021 Resolved: 07-30-2024 12-25-2023 Chronic Essential hypertension (20 sources) Essential (primary) hypertension; Translations: [Hypertensive disorder] Onset: 04-24-2020 Chronic Other connective tissue disease (20 sources) Ganglion cyst of left hand; Translations: [Ganglion, left hand] Onset: 10-30-2023 10-30-2023 Episodic Other screening for suspected conditions (not mental disorders or infectious disease) (20 sources) Patient encounter status; Translations: [Encounter for screening for malignant neoplasm of colon] Onset: 02-12-2024 Resolved: 05-14-2024 05-14-2024 Episodic Spondylosis; intervertebral disc disorders; other back problems (20 sources) Degeneration of lumbar intervertebral disc; Translations: [Other intervertebral disc degeneration, lumbar region] Onset: 10-30-2023 10-30-2023 Chronic Past or Other Problems Problem Classification Problem Date Documented Date Episodic/Chronic Genitourinary symptoms and ill-defined conditions (16 sources) Urinary symptoms ; Translations: [Unspecified symptoms and signs involving the genitourinary system] Onset: 01-13-2025 Resolved: 05-20-2025 01-13-2025 Episodic Mood disorders (20 sources) Mood disorders Onset: 10-30-2023 Resolved: 11-26-2024 10-30-2023 Results Test Name Value Interpretation Reference Range [facility] 03-04-2025 ALT [Catalytic activity/Vol] 12 U/L 6 - 29 U/L [facility] Andrea 03-04-2025 AST [Catalytic activity/Vol] 18 U/L 10 - 35 U/L [facility] Lipid 1996 panelon 5 Cholesterol [Mass/Vol] 303 mg/dL High NINF - 200 mg/dL [facility] Cholesterol in HDL [Mass/Vol] 109 mg/dL > OR = 50 [facility] Cholesterol in LDL [Mass/Vol] 173 mg/dL High mg/dL (calc) [facility] Comment on above: Reference range: <10 0 Desirable range <100 mg/dL for primary prevention; <70 mg/dL for patients with CHD or diabetic patients with > or = 2 CHD risk factors. LDL-C is now calculated using the Patricia calculation, which is a validated novel method providing better accuracy than the Friedewald equation in the estimation of LDL-C. Akash SS et al. SOPHY. 2013;310(19): 5606-0757 (http://education.Maps InDeed/faq/SHF514) Cholesterol non HDL [Mass/Vol] 194 mg/dL High [facility] Comment on above: For patients with di abetes plus 1 major ASCVD risk factor, treating to a non-HDL-C goal of <100 mg/dL (LDL-C of <70 mg/dL) is considered a therapeutic option. Cholesterol.total/Ch olesterol in HDL [Mass ratio] 2.8 {ratio} [facility] Interpretation and review of laboratory results Abnormal [facility] Triglyceride [Mass/Vol] 94 mg/dL [facility] - 150 mg/dL [facility] Performing Organization Information Site ID: QPT Name: [email or web address] Address: [address] [place] [id number] Director: Alex Peters MD [facility] No Panel Informationon 03-04 FASTING:YES FASTING: YES [facility] Organization Information Site ID: QTW Name: [email or web address] Address: [address] [place] [id number] Director: Maday Hilario [facility] MM TOMOSYNTHESIS SCREENING B Ion 01-08-[address] [address] Mammography Report Signed Patient: BEATRICE JAMES MR#: [id number] : 1955 Acct:[id number] Age/Sex: 69 / F ADM Date: 01/07/25 Loc: MAMMO Attending Dr: Roxie Knox NP Ordering Physician: Roxie Knox NP Results: Date of Service: 01/07/25 Follow Up: Procedure(s): MM tomosynthesis screening BI Accession Number(s): [id number] cc: Roxie Knox NP Patient Name: BEATRICE JAMES MR#: [id number] : 1955 Exam Date: 01/07/2025 Ordering Doctor: [...] breast cancer at age 53. LOCATION: [facility] BREAST COMPOSITION: There are scattered areas [...] Signed By: 01/08/25 1010 DD/ 1009 TD/TT: Link Assembler: [facility] Radiology, Radiologist, - 01/08/2025 [place] [address] Mammography Report Signed Patient: BEATRICE JAMES MR#: [id number] : 1955 Acct:[id number] Age/Sex: 69 / F ADM Date: 01/07/25 Loc: MAMMO Attending Dr: Roxie Knox NP Ordering Physician: Roxie Knox NP Results: Date of Service: 01/07/25 Follow Up: Procedure(s): MM tomosynthesis screening BI Accession Number(s): [id number] cc: Roxie Knox NP Patient Name: BEATRICE JAMES MR#: [id number] : 1955 Exam Date: 01/07/2025 Ordering Doctor: [...] breast cancer at age 53. LOCATION: [facility] BREAST COMPOSITION: There are scattered areas [...] Signed By: 01/08/25 1010 DD/ 1009 TD/TT: Link Assembler: [facility] [employer] Radiology Study observation (narrative) [facility] MM TOMOSYNTHESIS SCREENING B IOrdered By: Radiologist Radiology on 01-08-2025 [facility] [employer] Work Phone: CBC AUTO DIFFon 03-25-2021 BASO # 0.0 103/ul Normal 0.0-0.1 [facility] Comment on above: Performed By: #### C BC #### [facility] [address] [place], [place] [id number] John Stephanie Basophils/100 WBC (Bld) 0.6 % Normal 0.2-2.0 [facility] Comment on above: Performed By: #### C BC #### [facility] [address] [place] [address] John Stephanie EO # 0.1 103/ul Normal 0.0-0.7 [facility] Comment on above: Performed By: #### C BC #### [facility] [address] [place] [address] John Stephanie Eosinophils/100 WBC (Bld) 1.7 % Normal 0.9-7.0 [facility] Comment on above: Performed By: #### C BC #### [facility] [address] [place] [address] John Stephanie Erythrocyte distribution width (RBC) [Ratio] 14.6 % Normal 11.0-15.0 [facility] Comment on above: Performed By: #### C BC #### [facility] [address] [place] [address] John Stephanie Hematocrit (Bld) [Volume fraction] 41.7 % Normal 36.0-48.0 [facility] Comment on above: Performed By: #### C BC #### [facility] [address] [place], [place] [id number] John Stephanie Hemoglobin (Bld) [Mass/Vol] 13.1 g/dL Normal 12.0-16.0 [facility] Comment on above: Performed By: #### C BC #### [facility] [address] [place] [address] John Stephanie IG # 0.01 10e3/ul Normal 0.00-0.03 [facility] Comment on above: Performed By: #### C BC #### [facility] [address] [place] [address] John Stephanie IG % 0.2 % Normal 0.0-0.5 [facility] Comment on above: Performed By: #### C BC #### [facility] [address] [place], [place] [id number] John Stephanie LYMPH # 1.9 103/ul Normal 1.2-3.8 [facility] Comment on above: Performed By: #### C BC #### [facility] [address] [place], [place] [id number] John Stephanie Lymphocytes/100 WBC (Bld) 29.0 % Normal 20.5-60.0 [facility] Comment on above: Performed By: #### C BC #### [facility] [address] [place], [place] [id number] John Stephanie MANUAL DIFF REQ NO Normal [facility] Comment on above: Performed By: #### C BC #### [facility] [address] [place], [place] [address] John Stephanie MCH (RBC) [Entitic mass] 29.4 pg Normal 26.7-34.0 [facility] Comment on above: Performed By: #### C BC #### [facility] [address] [place] [address] Johnjohanna Maysen MCHC (RBC) [Mass/Vol] 31.4 g/dL Normal 29.9-35.2 [facility] Comment on above: Performed By: #### C BC #### [facility] [address] [place], [place] [id number] John Stephanie MCV (RBC) [Entitic vol] 93.7 fL Normal 81.0-99.0 [facility] Comment on above: Performed By: #### C BC #### [facility] [address] [place] [address] John Stephanie MONO # 0.6 103/ul Normal 0.3-0.8 [facility] Comment on above: Performed By: #### C BC #### [facility] [address] [place], [place] [address] John Stephanie Monocytes/100 WBC (Bld) 8.6 % Normal 1.7-12.0 [facility] Comment on above: Performed By: #### C BC #### [facility] [address] [place] [address] John Stephanie NEUT # 4.0 103/ul Normal 1.4-6.5 [facility] Comment on above: Performed By: #### C BC #### [facility] [address] [place] [address] John Brown Neutrophils/100 WBC (Bld) 59.9 % Normal 43.0-75.0 [facility] Comment on above: Performed By: #### C BC #### [facility] [address] [place], [place] [id number] John Brown Platelet mean volume (Bld) [Entitic vol] 10.2 fL Normal 9.5-13.5 [facility] Comment on above: Performed By: #### C BC #### [facility] [address] [place] [address] John Brown PLT 271 103/ul Normal 150-450 [facility] Comment on above: Performed By: #### C BC #### [facility] [address] [place] [address] John Brown RBC 4.45 106/ul Normal 4.20-5.40 [facility] Comment on above: Performed By: #### C BC #### [facility] [address] [place] [address] John Brown WBC 6.6 103/ul Normal 4.0-11.0 [facility] Comment on above: Performed By: #### C BC #### [facility] [address] [place], [place] [address] John Brown LIPID PROFILEon 03-25-2021 CHOL-HDL RATIO NORM SEE BELOW Normal [facility] Comment on above: Result Comment: 3.3 - 4.4 LOW RISK 4.4 - 7.1 AVERAGE RISK 7.1 - 11.0 MODERATE RISK >11.0 HIGH RISK Performed By: #### L DUANE, CMP #### [facility] [address] [place] [address] John Brown Cholesterol [Mass/Vol] 284 mg/dL Critically high <=200 [facility] Comment on above: Performed By: #### L IPELIZABETH, CMP #### [facility] [address] [place], [place] [address] John Stephanie Cholesterol in HDL [Mass/Vol] 90 mg/dL Normal [facility] Comment on above: Performed By: #### L IPID, CMP #### [facility] [address] [id number] John Stephanie Cholesterol in LDL [Mass/Vol] 173.4 mg/dL Normal [facility] Comment on above: Performed By: #### L IPID, CMP #### [facility] [address] [id number] John Stephanie Cholesterol.total/Ch olesterol in HDL [Mass ratio] 3.2 {ratio} Normal [facility] Comment on above: Performed By: #### L IPID, CMP #### [facility] [address] [id number] John Stephanie HDL NORMAL > or = 60 mg/dl - LOW CARDIOVASCULAR RISK <40 mg/dl - HIGH CARDIOVASCULAR RISK Normal [facility] Comment on above: Performed By: #### L IPID, CMP #### [facility] [address] [place] [address] John Stephanie LDL CALC NORMAL SEE BELOW Normal [facility] Comment on above: Result Comment: <100 mg/dl OPTIMAL 100 - 129 mg/dl NEAR OR ABOVE OPTIMAL 130 - 159 mg/dl BORDERLINE HIGH 160 - 189 mg/dl HIGH >190 mg/dl VERY HIGH Performed By: #### L IPID, CMP #### [facility] [address] [place] [address] John Stephanie Triglyceride [Mass/Vol] 103 mg/dL Normal <=150 [facility] Comment on above: Performed By: #### L IPID, CMP #### [facility] [address] [place], [place] [address] John Stephanie VLDL CALC 20.6 mg/dL Normal [facility] Comment on above: Performed By: #### L IPID, CMP #### [facility] [address] [place], [place] [address] John Stephanie PROF 14(COMP METB)on 021 Albumin [Mass/Vol] 4.0 g/dL Normal 3.5-5.0 [facility] Comment on above: Performed By: #### L IPID, CMP #### [facility] [address] [id number] John Stephanie Albumin/Globulin [Mass ratio] 1.0 {ratio} Normal [facility] Comment on above: Performed By: #### L IPID, CMP #### [facility] [address] [id number] John Stephanie ALP [Catalytic activity/Vol] 77 U/L Normal 38-126 [facility] Comment on above: Performed By: #### L IPID, CMP #### [facility] [address] [address] John Stephanie ALT [Catalytic activity/Vol] 23 U/L Normal 9-52 [facility] Comment on above: Performed By: #### L IPID, CMP #### [facility] [address] [address] John Stephanie Anion gap [Moles/Vol] 12.0 mmol/L Normal [facility] Comment on above: Performed By: #### L IPID, CMP #### [facility] [address] [address] John Stephanie AST [Catalytic activity/Vol] 18 U/L Normal 14-36 [facility] Comment on above: Performed By: #### L IPID, CMP #### [facility] [address] [address] John Stephanie Bilirubin [Mass/Vol] 0.4 mg/dL Normal 0.2-1.3 [facility] Comment on above: Performed By: #### L IPID, CMP #### [facility] [address] [address] John Stephanie Calcium [Mass/Vol] 9.6 mg/dL Normal 8.4-10.2 [facility] Comment on above: Performed By: #### L IPID, CMP #### [facility] [address] [address] John Stephanie Chloride [Moles/Vol] 100 mmol/L Normal 98-107 [facility] Comment on above: Performed By: #### L IPID, CMP #### [facility] [address] [address] John Stephanie CO2 [Moles/Vol] 30.0 mmol/L Normal 22.0-30.0 [facility] Comment on above: Performed By: #### L IPID, CMP #### [facility] [address] [address] John Stephanie Creatinine [Mass/Vol] 0.70 mg/dL Normal 0.52-1.04 [facility] Comment on above: Performed By: #### L IPID, CMP #### [facility] [address] [address] John Stephanie EGFR-AF COLOMBIAN >60 Normal >=60 [facility] Comment on above: Performed By: #### L IPID, CMP #### [facility] [address] [place] [address] John Stephanie EGFR-NON AF COLOMBIAN >60 Normal >=60 [facility] Comment on above: Performed By: #### L IPID, CMP #### [facility] [address] [address] John Stephanie Globulin (S) [Mass/Vol] 4.0 g/dL Normal [facility] Comment on above: Performed By: #### L IPID, CMP #### [facility] [address] [place] [address] John Stephanie Glucose [Mass/Vol] 107 mg/dL Critically high 74-106 [facility] Comment on above: Performed By: #### L IPID, CMP #### [facility] [address] [place] [address] John Stephanie Potassium [Moles/Vol] 5.0 mmol/L Normal 3.4-5.0 [facility] Comment on above: Performed By: #### L IPID, CMP #### [facility] [address] [address] John Stephanie Protein [Mass/Vol] 8.0 g/dL Normal 6.1-8.2 [facility] Comment on above: Performed By: #### L IPID, CMP #### [facility] [address] [address] John Stephanie Sodium [Moles/Vol] 137 mmol/L Normal 137-145 [facility] Comment on above: Performed By: #### L IPID, CMP #### [facility] [address] [place], [place] [address] John Stephanie Urea nitrogen [Mass/Vol] 14.0 mg/dL Normal 7.0-17.0 [facility] Comment on above: Performed By: #### L IPID, CMP #### [facility] [address] [place], [place] [id number] John Stephanie Urea nitrogen/Creatinine [Mass ratio] 20.0 mg/mg Normal [facility] Comment on above: Performed By: #### L IPID, CMP #### [facility] [address] [place] [address] John Stephanie CBC AUTO DIFFon 04-24-2020 BASO # 0.0 103/ul Normal 0.0-0.1 [facility] Comment on above: Performed By: #### C BC #### [facility] [address] [place], [place] [id number] John Stephanie Basophils/100 WBC (Bld) 0.6 % Normal 0.2-2.0 [facility] Comment on above: Performed By: #### C BC #### [facility] [address] [place], [place] [id number] John Stephanie EO # 0.1 103/ul Normal 0.0-0.7 [facility] Comment on above: Performed By: #### C BC #### [facility] [address] [place], [place] [id number] John Stephanie Eosinophils/100 WBC (Bld) 2.0 % Normal 0.9-7.0 [facility] Comment on above: Performed By: #### C BC #### [facility] [address] [place], [place] [id number] John Stephanie Erythrocyte distribution width (RBC) [Ratio] 15.6 % Critically high 11.0-15.0 [facility] Comment on above: Performed By: #### C BC #### [facility] [address] [place] [address] John Stephanie Hematocrit (Bld) [Volume fraction] 42.0 % Normal 36.0-48.0 [facility] Comment on above: Performed By: #### C BC #### [facility] [address] [place] [address] John Stephanie Hemoglobin (Bld) [Mass/Vol] 13.2 g/dL Normal 12.0-16.0 [facility] Comment on above: Performed By: #### C BC #### [facility] [address] [place] [address] John Stephanie IG # 0.02 10e3/ul Normal 0.00-0.03 [facility] Comment on above: Performed By: #### C BC #### [facility] [address] [place] [address] John Stephanie IG % 0.3 % Normal 0.0-0.5 [facility] Comment on above: Performed By: #### C BC #### [facility] [address] [place] [address] John Stephanie LYMPH # 1.4 103/ul Normal 1.2-3.8 [facility] Comment on above: Performed By: #### C BC #### [facility] [address] [place] [address] John Brown Lymphocytes/100 WBC (Bld) 21.3 % Normal 20.5-60.0 [facility] Comment on above: Performed By: #### C BC #### [facility] [address] [place] [address] John Maysen MANUAL DIFF REQ NO Normal [facility] Comment on above: Performed By: #### C BC #### [facility] [address] [place], [place] [id number] John Stephanie MCH (RBC) [Entitic mass] 29.0 pg Normal 26.7-34.0 [facility] Comment on above: Performed By: #### C BC #### [facility] [address] [place], [place] [id number] John Brown MCHC (RBC) [Mass/Vol] 31.4 g/dL Normal 29.9-35.2 [facility] Comment on above: Performed By: #### C BC #### [facility] [address] [place], [place] [id number] John Brown MCV (RBC) [Entitic vol] 92.3 fL Normal 81.0-99.0 [facility] Comment on above: Performed By: #### C BC #### [facility] [address] [place], [place] [id number] John Stephanie MONO # 0.6 103/ul Normal 0.3-0.8 [facility] Comment on above: Performed By: #### C BC #### [facility] [address] [place], [place] [id number] John Stephanie Monocytes/100 WBC (Bld) 8.6 % Normal 1.7-12.0 [facility] Comment on above: Performed By: #### C BC #### [facility] [address] [place] [address] John Stephanie NEUT # 4.4 103/ul Normal 1.4-6.5 [facility] Comment on above: Performed By: #### C BC #### [facility] [address] [place], [place] [id number] John Stephanie Neutrophils/100 WBC (Bld) 67.2 % Normal 43.0-75.0 [facility] Comment on above: Performed By: #### C BC #### [facility] [address] [place], [place] [id number] Johnjohanna Maysen Platelet mean volume (Bld) [Entitic vol] 9.2 fL Critically low 9.5-13.5 [facility] Comment on above: Performed By: #### C BC #### [facility] [address] [place], [place] [id number] John Stephanie PLT 244 103/ul Normal 150-450 [facility] Comment on above: Performed By: #### C BC #### [facility] [address] [place], [place] [id number] John Stephanie RBC 4.55 106/ul Normal 4.20-5.40 [facility] Comment on above: Performed By: #### C BC #### [facility] [address] [place], [place] [address] Johnjohanna Maysen WBC 6.5 103/ul Normal 4.0-11.0 [facility] Comment on above: Performed By: #### C BC #### [facility] [address] [place], [place] [address] John Stephanie LIPID PROFILEon 04-24-2020 CHOL-HDL RATIO NORM SEE BELOW Normal [facility] Comment on above: Result Comment: 3.3 - 4.4 LOW RISK 4.4 - 7.1 AVERAGE RISK 7.1 - 11.0 MODERATE RISK >11.0 HIGH RISK Performed By: #### L IPID, CMP #### [facility] [address] [place] [address] John Stephanie Cholesterol [Mass/Vol] 286 mg/dL Critically high <=200 [facility] Comment on above: Performed By: #### L IPID, CMP #### [facility] [address] [place], [place] [address] John Stephanie Cholesterol in HDL [Mass/Vol] 92 mg/dL Normal [facility] Comment on above: Performed By: #### L IPID, CMP #### [facility] [address] [place] [address] John Stephanie Cholesterol in LDL [Mass/Vol] 166.6 mg/dL Normal [facility] Comment on above: Performed By: #### L IPID, CMP #### [facility] [address] [place], [place] [address] John Stephanie Cholesterol.total/Ch olesterol in HDL [Mass ratio] 3.1 {ratio} Normal [facility] Comment on above: Performed By: #### L IPID, CMP #### [facility] [address] [place] [address] John Stephanie HDL NORMAL > or = 60 mg/dl - LOW CARDIOVASCULAR RISK <40 mg/dl - HIGH CARDIOVASCULAR RISK Normal [facility] Comment on above: Performed By: #### L IPID, CMP #### [facility] [address] [place], [place] [address] John Stephanie LDL CALC NORMAL SEE BELOW Normal [facility] Comment on above: Result Comment: <100 mg/dl OPTIMAL 100 - 129 mg/dl NEAR OR ABOVE OPTIMAL 130 - 159 mg/dl BORDERLINE HIGH 160 - 189 mg/dl HIGH >190 mg/dl VERY HIGH Performed By: #### L IPID, CMP #### [facility] [address] [place] [id number] John Stephanie Triglyceride [Mass/Vol] 137 mg/dL Normal <=150 [facility] Comment on above: Performed By: #### L IPID, CMP #### [facility] [address] [place] [id number] John Stephanie VLDL CALC 27.4 mg/dL Normal [facility] Comment on above: Performed By: #### L IPID, CMP #### [facility] [address] [place], [place] [id number] John Brown PROF 14(COMP METB)on 020 Albumin [Mass/Vol] 4.0 g/dL Normal 3.5-5.0 [facility] Comment on above: Performed By: #### L IPID, CMP #### [facility] [address] [place], [place] [address] John Stephanie Albumin/Globulin [Mass ratio] 1.0 {ratio} Normal [facility] Comment on above: Performed By: #### L IPID, CMP #### [facility] [address] [place], [place] [address] John Stephanie ALP [Catalytic activity/Vol] 89 U/L Normal 38-126 [facility] Comment on above: Performed By: #### L IPID, CMP #### [facility] [address] [place], [place] [address] John Stephanie ALT [Catalytic activity/Vol] 26 U/L Normal 9-52 [facility] Comment on above: Performed By: #### L IPID, CMP #### [facility] [address] [place] [id number] John Stephanie Anion gap [Moles/Vol] 11.0 mmol/L Normal [facility] Comment on above: Performed By: #### L IPID, CMP #### [facility] [address] [place] [address] John Stephanie AST [Catalytic activity/Vol] 20 U/L Normal 14-36 [facility] Comment on above: Performed By: #### L IPID, CMP #### [facility] [address] [place], [place] [id number] John Stephanie Bilirubin [Mass/Vol] 0.4 mg/dL Normal 0.2-1.3 [facility] Comment on above: Performed By: #### L IPID, CMP #### [facility] [address] [place] [address] John Stephanie Calcium [Mass/Vol] 9.2 mg/dL Normal 8.4-10.2 [facility] Comment on above: Performed By: #### L IPID, CMP #### [facility] [address] [place] [address] John Stephanie Chloride [Moles/Vol] 99 mmol/L Normal 98-107 [facility] Comment on above: Performed By: #### L IPID, CMP #### [facility] [address] [place] [address] John Stephanie CO2 [Moles/Vol] 29.3 mmol/L Normal 22.0-30.0 [facility] Comment on above: Performed By: #### L IPID, CMP #### [facility] [address] [place] [address] John Stephanie Creatinine [Mass/Vol] 0.66 mg/dL Normal 0.52-1.04 [facility] Comment on above: Performed By: #### L IPID, CMP #### [facility] [address] [place], [place] [address] John Stephanie EGFR-AF COLOMBIAN >60 Normal >=60 [facility] [place] [facility] Comment on above: Performed By: #### L IPID, CMP #### [facility] [address] [place], [place] [id number] John Stephanie EGFR-NON AF COLOMBIAN >60 Normal >=60 [facility] Comment on above: Performed By: #### L IPID, CMP #### [facility] [address] [place], [place] [address] John Stephanie Globulin (S) [Mass/Vol] 3.9 g/dL Normal [facility] Comment on above: Performed By: #### L IPID, CMP #### [facility] [address] [place], [place] [address] John Stephanie Glucose [Mass/Vol] 115 mg/dL Critically high 74-106 [facility] Comment on above: Performed By: #### L IPID, CMP #### [facility] [address] [place], [place] [address] John Stephanie Potassium [Moles/Vol] 4.3 mmol/L Normal 3.4-5.0 [facility] Comment on above: Performed By: #### L IPID, CMP #### [facility] [address] [place] [id number] John Stephanie Protein [Mass/Vol] 7.9 g/dL Normal 6.1-8.2 [facility] Comment on above: Performed By: #### L IPID, CMP #### [facility] [address] [place] [id number] John Stephanie Sodium [Moles/Vol] 135 mmol/L Critically low 137-145 Th [facility] Comment on above: Performed By: #### L IPID, CMP #### [facility] [address] [place] [id number] John Stephanie Urea nitrogen [Mass/Vol] 11.0 mg/dL Normal 7.0-17.0 [facility] Comment on above: Performed By: #### L IPID, CMP #### [facility] [address] [place] [id number] John Stephanie Urea nitrogen/Creatinine [Mass ratio] 16.7 mg/mg Normal [facility] Comment on above: Performed By: #### L IPID, CMP #### [facility] [address] [place], [place] [address] John Stephanie Vital Signs Date Time Vital Sign Value Performing Clinician Facility 08-20-2025 09:33-0400 Body height 172.72 cm Roxie Tessyholz CERTIFIED MASTER SAFE TECHNICIAN-C Work Phone: [facility] 08-20-2025 09:33-0400 Body mass index (BMI) [Ratio] 26.9 kg/m2 Roxie Aichholz CERTIFIED MASTER SAFE TECHNICIAN-C Work Phone: [facility] 08-20-2025 09:33-0400 Body temperature 97.8 [degF] Roxie Aichholz CERTIFIED MASTER SAFE TECHNICIAN-C Work Phone: [facility] 08-20-2025 09:33-0400 Body weight 80.51 kg Roxie Aichholz CERTIFIED MASTER SAFE TECHNICIAN-C Work Phone: [facility] 08-20-2025 09:33-0400 Diastolic blood pressure 78 mm[Hg] Roxie Aichholz CERTIFIED MASTER SAFE TECHNICIAN-C Work Phone: [facility] 08-20-2025 09:33-0400 Heart rate 89 /min Roxie Aichholz CERTIFIED MASTER SAFE TECHNICIAN-C Work Phone: [facility] 08-20-2025 09:33-0400 Respiratory rate 18 /min Roxie Aichholz CERTIFIED MASTER SAFE TECHNICIAN-C Work Phone: [facility] 08-20-2025 09:33-0400 SaO2% (BldA) [Mass fraction] 99 % Roxie Aichholz CERTIFIED MASTER SAFE TECHNICIAN-C Work Phone: [facility] 08-20-2025 09:33-0400 Systolic blood pressure 128 mm[Hg] Roxie Aichholz CERTIFIED MASTER SAFE TECHNICIAN-C Work Phone: [facility] 05-20-2025 09:29-0400 Body mass index (BMI) [Ratio] 26.4 kg/m2 Roxie Aichholz CERTIFIED MASTER SAFE TECHNICIAN Work Phone: [facility] 05-20-2025 09:29-0400 Body temperature 98.49 [degF] Roxie Aichholz CERTIFIED MASTER SAFE TECHNICIAN Work Phone: [facility] 05-20-2025 09:29-0400 Body weight 78.74 kg Roxie Aichholz CERTIFIED MASTER SAFE TECHNICIAN Work Phone: [facility] 05-20-2025 09:29-0400 Diastolic blood pressure 76 mm[Hg] Roxie Aichholz CERTIFIED MASTER SAFE TECHNICIAN Work Phone: [facility] 05-20-2025 09:29-0400 Heart rate 76 /min Roxie Aichholz CERTIFIED MASTER SAFE TECHNICIAN Work Phone: [facility] 05-20-2025 09:29-0400 Respiratory rate 18 /min Roxie Aichholz CERTIFIED MASTER SAFE TECHNICIAN Work Phone: [facility] 05-20-2025 09:29-0400 SaO2% (BldA) [Mass fraction] 98 % Roxie Aichholz CERTIFIED MASTER SAFE TECHNICIAN Work Phone: [facility] 05-20-2025 09:29-0400 Systolic blood pressure 140 mm[Hg] Roxie Aichholz CERTIFIED MASTER SAFE TECHNICIAN Work Phone: [facility] 02-17-2025 09:21-0400 Body mass index (BMI) [Ratio] 26.58 kg/m2 Roxie Aichholz CERTIFIED MASTER SAFE TECHNICIAN Work Phone: [facility] 02-17-2025 09:21-0400 Body temperature 97.81 [degF] Roxie Aichholz CERTIFIED MASTER SAFE TECHNICIAN Work Phone: [facility] 02-17-2025 09:21-0400 Body weight 79.29 kg Roxie Aichholz CERTIFIED MASTER SAFE TECHNICIAN Work Phone: [facility] 02-17-2025 09:21-0400 Diastolic blood pressure 76 mm[Hg] Roxie Aichholz CERTIFIED MASTER SAFE TECHNICIAN Work Phone: [facility] 02-17-2025 09:21-0400 Heart rate 89 /min Roxie Aichholz CERTIFIED MASTER SAFE TECHNICIAN Work Phone: [facility] 02-17-2025 09:21-0400 Respiratory rate 18 /min Roxie Aichholz CERTIFIED MASTER SAFE TECHNICIAN Work Phone: [facility] 02-17-2025 09:21-0400 SaO2% (BldA) [Mass fraction] 98 % Roxietim Eubanksz CERTIFIED MASTER SAFE TECHNICIAN Work Phone: [facility] 02-17-2025 09:21-0400 Systolic blood pressure 126 mm[Hg] Roxie Tessyholz CERTIFIED MASTER SAFE TECHNICIAN Work Phone: [facility] 01-06-2025 09:47-0500 Body mass index (BMI) [Ratio] 26.12 kg/m2 Roxie Tessyholz CERTIFIED MASTER SAFE TECHNICIAN Work Phone: [facility] 01-06-2025 09:47-0500 Body temperature 98.8 [degF] Roxie Tessyholz CERTIFIED MASTER SAFE TECHNICIAN Work Phone: [facility] 01-06-2025 09:47-0500 Body weight 77.93 kg Roxie Tessyholz CERTIFIED MASTER SAFE TECHNICIAN Work Phone: [facility] 01-06-2025 09:47-0500 Diastolic blood pressure 86 mm[Hg] Roxie Tessyholz CERTIFIED MASTER SAFE TECHNICIAN Work Phone: [facility] 01-06-2025 09:47-0500 Heart rate 93 /min Roxie Tessyholz CERTIFIED MASTER SAFE TECHNICIAN Work Phone: [facility] 01-06-2025 09:47-0500 Respiratory rate 20 /min Roxie Tessyholz CERTIFIED MASTER SAFE TECHNICIAN Work Phone: [facility] 01-06-2025 09:47-0500 SaO2% (BldA) [Mass fraction] 98 % Roxie Tessyholz CERTIFIED MASTER SAFE TECHNICIAN Work Phone: [facility] 01-06-2025 09:47-0500 Systolic blood pressure 132 mm[Hg] Roxie Aichholz CERTIFIED MASTER SAFE TECHNICIAN Work Phone: [facility] 11-26-2024 10:10-0500 Body height 172.7 cm Roxie Michellehholz CERTIFIED MASTER SAFE TECHNICIAN Work Phone: [facility] 11-26-2024 10:10-0500 Body mass index (BMI) [Ratio] 25.88 kg/m2 Roxie Tessyholz CERTIFIED MASTER SAFE TECHNICIAN Work Phone: [facility] 11-26-2024 10:10-0500 Body temperature 98.49 [degF] Roxie Michellehholz CERTIFIED MASTER SAFE TECHNICIAN Work Phone: [facility] 11-26-2024 10:10-0500 Body weight 77.2 kg Roxie Michellehholz CERTIFIED MASTER SAFE TECHNICIAN Work Phone: [facility] 11-26-2024 10:10-0500 Diastolic blood pressure 78 mm[Hg] Roxie Aichholz CERTIFIED MASTER SAFE TECHNICIAN Work Phone: [facility] 11-26-2024 10:10-0500 Heart rate 73 /min Roxie Aichholz CERTIFIED MASTER SAFE TECHNICIAN Work Phone: [facility] 11-26-2024 10:10-0500 Respiratory rate 18 /min Roxie Michellehholz CERTIFIED MASTER SAFE TECHNICIAN Work Phone: [facility] 11-26-2024 10:10-0500 SaO2% (BldA) [Mass fraction] 99 % Roxie Tessyholz CERTIFIED MASTER SAFE TECHNICIAN Work Phone: [facility] 11-26-2024 10:10-0500 Systolic blood pressure 130 mm[Hg] Roxie Aichholz CERTIFIED MASTER SAFE TECHNICIAN Work Phone: [facility] 10-29-2024 09:24-0500 Body height 172.7 cm Roxie Michellehholz CERTIFIED MASTER SAFE TECHNICIAN Work Phone: [facility] 10-29-2024 09:24-0500 Body mass index (BMI) [Ratio] 25.73 kg/m2 Roxie Michellehholz CERTIFIED MASTER SAFE TECHNICIAN Work Phone: [facility] 10-29-2024 09:24-0500 Body temperature 98.71 [degF] Roxie Michellehholz CERTIFIED MASTER SAFE TECHNICIAN Work Phone: [facility] 10-29-2024 09:24-0500 Body weight 76.75 kg Roxie Aichholz CERTIFIED MASTER SAFE TECHNICIAN Work Phone: [facility] 10-29-2024 09:24-0500 Diastolic blood pressure 80 mm[Hg] Roxie Aichholz CERTIFIED MASTER SAFE TECHNICIAN Work Phone: [facility] 10-29-2024 09:24-0500 Heart rate 73 /min Roxie Aichholz CERTIFIED MASTER SAFE TECHNICIAN Work Phone: [facility] 10-29-2024 09:24-0500 Respiratory rate 20 /min Roxie Aichholz CERTIFIED MASTER SAFE TECHNICIAN Work Phone: [facility] 10-29-2024 09:24-0500 SaO2% (BldA) [Mass fraction] 100 % Roxie Aichholz CERTIFIED MASTER SAFE TECHNICIAN Work Phone: [facility] 10-29-2024 09:24-0500 Systolic blood pressure 160 mm[Hg] Roxie Aichholz CERTIFIED MASTER SAFE TECHNICIAN Work Phone: [facility] 07-30-2024 09:26-0400 Body height 172.7 cm Roxie Aichholz CERTIFIED MASTER SAFE TECHNICIAN Work Phone: [facility] 07-30-2024 09:26-0400 Body mass index (BMI) [Ratio] 24.69 kg/m2 Roxie Aichholz CERTIFIED MASTER SAFE TECHNICIAN Work Phone: [facility] 07-30-2024 09:26-0400 Body temperature 98.71 [degF] Roxie Aichholz CERTIFIED MASTER SAFE TECHNICIAN Work Phone: [facility] 07-30-2024 09:26-0400 Body weight 73.66 kg Roxie Aichholz CERTIFIED MASTER SAFE TECHNICIAN Work Phone: [facility] 07-30-2024 09:26-0400 Diastolic blood pressure 76 mm[Hg] Roxie Aichholz CERTIFIED MASTER SAFE TECHNICIAN Work Phone: [facility] 07-30-2024 09:26-0400 Heart rate 62 /min Roxie Aichholz CERTIFIED MASTER SAFE TECHNICIAN Work Phone: [facility] 07-30-2024 09:26-0400 Respiratory rate 18 /min Roxie Aichholz CERTIFIED MASTER SAFE TECHNICIAN Work Phone: [facility] 07-30-2024 09:26-0400 SaO2% (BldA) [Mass fraction] 100 % Roxie Knox CERTIFIED MASTER SAFE TECHNICIAN Work Phone: [facility] 07-30-2024 09:26-0400 Systolic blood pressure 128 mm[Hg] Roxie Knox CERTIFIED MASTER SAFE TECHNICIAN Work Phone: [facility] Healthcare Encounters Encounter Date Encounter Type Care Provider Facility Start: 08-20-2025 End: 08-20-2025 ambulatory Roxie Knox CERTIFIED MASTER SAFE TECHNICIAN-C Work Phone: [facility] Work Phone: Start: 08-20-2025 End: 08-20-2025 Patient encounter procedure Roxie Knox CERTIFIED MASTER SAFE TECHNICIAN-C [facility] Work Phone: Start: 08-13-2025 Patient encounter procedure Fela Knox CERTIFIED MASTER SAFE TECHNICIAN-C Work Phone: [facility] Start: 06-26-2025 End: 06-26-2025 Refill Roxie Lisette CERTIFIED MASTER SAFE TECHNICIAN Work Phone: [facility] Comment on above: Mixed hyperlipidemia (Primary Dx) Start: 06-25-2025 End: 06-25-2025 Refill Roxie Aicvadimholz CERTIFIED MASTER SAFE TECHNICIAN Work Phone: [facility] Comment on above: Primary hypertension Start: 05-20-2025 End: 05-20-2025 Bamboo flowsheet Roxie Lisette CERTIFIED MASTER SAFE TECHNICIAN Work Phone: [facility] Start: 05-20-2025 End: 05-20-2025 Bamboo flowsheet Roxie Tessyholz CERTIFIED MASTER SAFE TECHNICIAN Work Phone: [facility] Start: 05-20-2025 End: 05-20-2025 Office outpatient visit 25 minutes Roxie Lisette CERTIFIED MASTER SAFE TECHNICIAN Work Phone: [facility] Comment on above: Primary hypertension (Primary Dx); Mixed hyperlipidemia ; EFRAIN (generalized anxiety disorder) Start: 05-20-2025 End: 05-20-2025 ambulatory ROXIE AICHHOLZ Not Available Start: 05-16-2025 End: 05-18-2025 Refill Roxie Aichholz CERTIFIED MASTER SAFE TECHNICIAN Work Phone: [facility] Comment on above: Mixed hyperlipidemia Start: 05-05-2025 End: 05-05-2025 Refill Roxie Aichholz CERTIFIED MASTER SAFE TECHNICIAN Work Phone: [facility] Comment on above: EFRAIN (generalized anx iety disorder) Start: 03-03-2025 End: 03-04-2025 External Result Encounter Roxie Aichholz CERTIFIED MASTER SAFE TECHNICIAN Work Phone: [facility] Unsolicited Start: 03-03-2025 End: 03-04-2025 External Result Encounter Roxie Aichholz CERTIFIED MASTER SAFE TECHNICIAN Work Phone: [facility] Unsolicited Start: 02-17-2025 End: 02-17-2025 Bamboo flowsheet Roxie Aichholz CERTIFIED MASTER SAFE TECHNICIAN Work Phone: [facility] Start: 02-17-2025 End: 02-17-2025 Bamboo flowsheet Roxie Aichholz CERTIFIED MASTER SAFE TECHNICIAN Work Phone: [facility] Start: 02-17-2025 End: 02-17-2025 Office outpatient visit 15 minutes Roxie Aichholz CERTIFIED MASTER SAFE TECHNICIAN Work Phone: [facility] Comment on above: EFRAIN (generalized anx iety disorder) (CMS/HCC) (Primary Dx); Primary hypertension (CMS/HCC); Mixed hyperlipidemia (CMS/HCC) Start: 02-17-2025 End: 02-17-2025 ambulatory ROXIE AICHHOLZ Not Available Start: 01-14-2025 End: 01-14-2025 Refill Roxie Aichholz CERTIFIED MASTER SAFE TECHNICIAN Work Phone: [facility] Comment on above: UTI symptoms (Primar y Dx) Start: 01-13-2025 End: 01-13-2025 Refill Rxoie Aichholz CERTIFIED MASTER SAFE TECHNICIAN Work Phone: [facility] Comment on above: Mixed hyperlipidemia (CMS/HCC) (Primary Dx) UTI symptoms (Primar y Dx) Start: 01-08-2025 End: 01-08-2025 Clinisync Result Encounter Roxie Knox CERTIFIED MASTER SAFE TECHNICIAN Work Phone: [facility] External Department Unsolicited Start: 01-08-2025 End: 01-08-2025 Clinisync Result Encounter Roxie Knox CERTIFIED MASTER SAFE TECHNICIAN Work Phone: [facility] External [facility] Unsolicited Start: 01-06-2025 End: 01-06-2025 Bamboo flowsheet Roxie Knox CERTIFIED MASTER SAFE TECHNICIAN Work Phone: [facility] Start: 01-06-2025 End: 01-06-2025 Bamboo flowsheet Roxie Knox CERTIFIED MASTER SAFE TECHNICIAN Work Phone: [facility] Start: 01-06-2025 End: 01-06-2025 Office outpatient visit 25 minutes Roxie Knox CERTIFIED MASTER SAFE TECHNICIAN Work Phone: [facility] Comment on above: EFRAIN (generalized anx iety disorder) (CMS/HCC) (Primary Dx); Primary hypertension (CMS/HCC); Mixed hyperlipidemia (CMS/HCC) Start: 01-06-2025 End: 01-06-2025 ambulatory ROXIE KNOX Not Available Start: 11-26-2024 End: 11-26-2024 Bamboo flowsheet Roxie Knox CERTIFIED MASTER SAFE TECHNICIAN Work Phone: [facility] Start: 11-26-2024 End: 11-26-2024 Bamboo flowsheet Roxie Lisette CERTIFIED MASTER SAFE TECHNICIAN Work Phone: [facility] Start: 11-26-2024 End: 11-26-2024 Patient encounter procedure Roxie Knox CERTIFIED MASTER SAFE TECHNICIAN Work Phone: [facility] Comment on above: Encounter for annual wellness visit (AWV) in Medicare patient (Primary Dx); Primary hypertension (CMS/HCC); EFRAIN (generalized anxiety disorder) (CMS/HCC); Mixed hyperlipidemia (CMS/HCC); Encounter for screening mammogram for malignant neoplasm of breast Start: 11-26-2024 End: 11-26-2024 ambulatory ROXIE AICHHOLZ Not Available Start: 11-18-2024 End: 11-18-2024 Refill Roxie Aichholz CERTIFIED MASTER SAFE TECHNICIAN Work Phone: [facility] Comment on above: EFRAIN (generalized anx iety disorder) (CMS/HCC) (Primary Dx) Start: 10-29-2024 End: 10-29-2024 Bamboo flowsheet Roxie Aichholz CERTIFIED MASTER SAFE TECHNICIAN Work Phone: [facility] Start: 10-29-2024 End: 10-29-2024 Bamboo flowsheet Roxie Aichholz CERTIFIED MASTER SAFE TECHNICIAN Work Phone: [facility] Start: 10-29-2024 End: 10-29-2024 Office outpatient visit 15 minutes Roxie Aichholz CERTIFIED MASTER SAFE TECHNICIAN Work Phone: [facility] Comment on above: EFRAIN (generalized anx iety disorder) (CMS/HCC) (Primary Dx) Start: 10-29-2024 End: 10-29-2024 ambulatory ROXIE AICHHOLZ Not Available Start: 07-30-2024 End: 07-30-2024 Bamboo flowsheet Roxie Aichholz CERTIFIED MASTER SAFE TECHNICIAN Work Phone: [facility] Start: 07-30-2024 End: 07-30-2024 Bamboo flowsheet Roxie Aichholz CERTIFIED MASTER SAFE TECHNICIAN Work Phone: [facility] Start: 07-30-2024 End: 07-30-2024 ambulatory ROXIE AICHHOLZ Not Available Start: 07-30-2024 End: 07-30-2024 Office outpatient visit 15 minutes Roxie Aichholz CERTIFIED MASTER SAFE TECHNICIAN Work Phone: [facility] Comment on above: EFRAIN (generalized anx iety disorder) (CMS/HCC) (Primary Dx); Primary hypertension (CMS/HCC); Mixed hyperlipidemia (CMS/HCC) Start: 06-18-2024 End: 06-18-2024 ambulatory ROXIE AICHHOLZ Not Available Start: 12-26-2023 Refill Roxie Aichholz CERTIFIED MASTER SAFE TECHNICIAN Work Phone: [facility] Comment on above: Hypercholesterolemia (CMS/HCC) Start: 12-25-2023 Refill Roxie Lisette CERTIFIED MASTER SAFE TECHNICIAN Work Phone: [facility] Comment on above: Hypercholesterolemia (CMS/HCC) (Primary Dx) Start: 10-30-2023 Patient encounter procedure Fela jade Lisette CERTIFIED MASTER SAFE TECHNICIAN Work Phone: [facility] Start: 04-01-2021 Encounter for genera l adult medical examination without abnormal findings DR ZOEY HERNANDEZ [facility] Start: 03-25-2021 End: 03-26-[address] ZOEY HERNANDEZ Facility:[facility] Start: 03-25-2021 End: 03-26-2021 Encounter for general adult medical examination without abnormal findings DR ZOEY HERNANDEZ Facility:[facility] Start: 04-24-2020 End: 04-25-[address] ZOEY HERNANDEZ Facility:[facility] Procedures Date Procedure Procedure Detail Performing Clinician Start: 03-03-2025 Lipid panel Roxie spencer CERTIFIED MASTER SAFE TECHNICIAN Work Phone: Start: 03-03-2025 Transferase aspartat e amino ast sgot Roxie Knox CERTIFIED MASTER SAFE TECHNICIAN Work Phone: Start: 01-08-2025 MM TOMOSYNTHESIS SCR EENING BI Roxie Knox CERTIFIED MASTER SAFE TECHNICIAN Work Phone: Start: 01-08-2025 Mammography Roxie spencer CERTIFIED MASTER SAFE TECHNICIAN Work Phone: Start: 10-30-2023 Mammography Roxie spencer CERTIFIED MASTER SAFE TECHNICIAN Work Phone: Plan of Treatment Date Care Activity Detail Author Start: 02-25-2027 Screening for malignant neoplasm of colon [facility] Start: 01-08-2026 Screening for malignant neoplasm of breast Mammogram [facility] Start: 12-01-2025 End: 12-01-2025 Patient encounter procedure 12/01/2025 10:00 AM EST Office Visit [facility] [address] [place] [phone] Roxie Knox NP [address] [place] [phone] [facility] Start: 11-26-2025 Medicare Annual Wellness (AWV) Medicare Annual Wellness (AWV) [facility] Start: 11-26-2025 Pneumococcal Vaccine: 65+ Years (1 of 1 - PCV) Pneumococcal Vaccine: 65+ Years (1 of 1 - PCV) [facility] Comment on above: Postponed from 2018 (Patient Refus ed) Postponed from 11/08 (Patient Refused) Start: 08-26-2025 End: 06-26-2026 Alanine aminotransferase [Enzymatic activity/volume] in Serum or Plasma ALT Lab Routine Mixed hyperlipidemia Expected: 08/26/2025 (Approximate), Expires: 06/26/2026 [facility] Comment on above: Expected: 08/26/2025 (Approximate), Expi res: 06/26/2026 Start: 08-26-2025 End: 06-26-2026 Aspartate aminotransferase [Enzymatic activity/volume] in Serum or Plasma AST Lab Routine Mixed hyperlipidemia Expected: 08/26/2025 (Approximate), Expires: 06/26/2026 [facility] Comment on above: Expected: 08/26/2025 (Approximate), Expi res: 06/26/2026 Start: 08-26-2025 End: 06-26-2026 Lipid 1996 panel - Serum or Plasma Lipid panel Lab Routine Mixed hyperlipidemia Expected: 08/26/2025 (Approximate), Expires: 06/26/2026 [facility] Work Phone: Comment on above: Expected: 08/26/2025 (Approximate), Expi res: 06/26/2026 Start: 08-20-2025 End: 08-20-2025 Patient encounter procedure 08/20/2025 9:20 AM EDT Office Visit [facility] [address] [place] [phone] Roxie Knox NP [address] [place] [phone] [facility] Start: 05-20-2025 End: 05-20-2025 Patient encounter procedure [facility] Comment on above: Mixed hyperlipidemia (Primary Dx); EFRAIN (generalized anxiety disorder) Start: 05-18-2025 End: 05-18-2026 Alanine aminotransferase [Enzymatic activity/volume] in Serum or Plasma ALT Lab Routine Mixed hyperlipidemia Expected: 05/18/2025 (Approximate), Expires: 05/18/2026 [facility] Comment on above: Expected: 05/18/2025 (Approximate), Expi res: 05/18/2026 Start: 05-18-2025 End: 05-18-2026 Aspartate aminotransferase [Enzymatic activity/volume] in Serum or Plasma AST Lab Routine Mixed hyperlipidemia Expected: 05/18/2025 (Approximate), Expires: 05/18/2026 [facility] Comment on above: Expected: 05/18/2025 (Approximate), Expi res: 05/18/2026 Start: 05-18-2025 End: 05-18-2026 Lipid 1996 panel - Serum or Plasma Lipid panel Lab Routine Mixed hyperlipidemia Expected: 05/18/2025, Expires: 05/18/2026 [facility] Work Phone: Comment on above: Expected: 05/18/2025, Expires: Start: 03-14-2025 End: 01-13-2026 Alanine aminotransferase [Enzymatic activity/volume] in Serum or Plasma ALT Lab Routine Mixed hyperlipidemia (CMS/HCC) Expected: 03/14/2025 (Approximate), Expires: 01/13/2026 [facility] Comment on above: Expected: 03/14/2025 (Approximate), Expi res: 01/13/2026 Start: 03-14-2025 End: 01-13-2026 Aspartate aminotransferase [Enzymatic activity/volume] in Serum or Plasma AST Lab Routine Mixed hyperlipidemia (CMS/HCC) Expected: 03/14/2025 (Approximate), Expires: 01/13/2026 [facility] Comment on above: Expected: 03/14/2025 (Approximate), Expi res: 01/13/2026 Start: 03-14-2025 End: 01-13-2026 Lipid 1996 panel - Serum or Plasma Lipid panel Lab Routine Mixed hyperlipidemia (CMS/HCC) Expected: 03/14/2025 (Approximate), Expires: 01/13/2026 [facility] Work Phone: Comment on above: Expected: 03/14/2025 (Approximate), Expi res: 01/13/2026 Start: 02-17-2025 End: 02-17-2025 Patient encounter procedure [facility] Comment on above: Primary hypertension (CMS/HCC) (Primary Dx); EFRAIN (generalized anxiety disorder) (CMS/HCC); Mixed hyperlipidemia (CMS/HCC) Start: 01-27-2025 End: 07-30-2025 Lipid 1996 panel - Serum or Plasma Lipid panel Lab Routine Mixed hyperlipidemia (CMS/HCC) Expected: 01/27/2025 (Approximate), Expires: 07/30/2025 [facility] Work Phone: Comment on above: Expected: 01/27/2025 (Approximate), Expi res: 07/30/2025 Start: 01-06-2025 End: 01-06-2026 CBC W Auto Differential panel - Blood CBC and differential Lab Routine Primary hypertension (CMS/HCC) Expected: 01/06/2025 (Approximate), Expires: 01/06/2026 [facility] Work Phone: Comment on above: Expected: 01/06/2025 (Approximate), Expi res: 01/06/2026 Start: 01-06-2025 End: 01-06-2026 Comprehensive metabolic 2000 panel - Serum or Plasma Comprehensive metabolic panel Lab Routine Primary hypertension (CMS/HCC) Mixed hyperlipidemia (CMS/HCC) Expected: 01/06/2025 (Approximate), Expires: 01/06/2026 [facility] Comment on above: Expected: 01/06/2025 (Approximate), Expi res: 01/06/2026 Start: 01-06-2025 End: 01-06-2026 Lipid 1996 panel - Serum or Plasma Lipid panel Lab Routine Mixed hyperlipidemia (CMS/HCC) Expected: 01/06/2025 (Approximate), Expires: 01/06/2026 [facility] Comment on above: Expected: 01/06/2025 (Approximate), Expi res: 01/06/2026 Start: 01-06-2025 End: 01-06-2026 Microalbumin/Creatinine panel in random Urine Microalbumin / creatinine, urine ratio Lab Routine Primary hypertension (CMS/HCC) Expected: 01/06/2025 (Approximate), Expires: 01/06/2026 [facility] Comment on above: Expected: 01/06/2025 (Approximate), Expi res: 01/06/2026 Start: 01-06-2025 End: 01-06-2026 Thyrotropin [Units/volume] in Serum or Plasma TSH Lab Routine EFRAIN (generalized anxiety disorder) (CMS/HCC) Expected: 01/06/2025 (Approximate), Expires: 01/06/2026 [facility] Comment on above: Expected: 01/06/2025 (Approximate), Expi res: 01/06/2026 Start: 01-06-2025 End: 01-06-2026 Thyroxine (T4) free [Mass/volume] in Serum or Plasma T4, free Lab Routine EFRAIN (generalized anxiety disorder) (CMS/HCC) Expected: 01/06/2025 (Approximate), Expires: 01/06/2026 [facility] Comment on above: Expected: 01/06/2025 (Approximate), Expi res: 01/06/2026 Start: 01-06-2025 End: 01-06-2026 Urinalysis complete panel - Urine Urinalysis with reflex microscopic (clean catch) Lab Routine Primary hypertension (CMS/HCC) Expected: 01/06/2025 (Approximate), Expires: 01/06/2026 [facility] Comment on above: Expected: 01/06/2025 (Approximate), Expi res: 01/06/2026 Start: 01-06-2025 End: 01-06-2025 Patient encounter procedure 01/06/2025 9:40 AM EST Office Visit [facility] [address] [place] [phone] Roxie Knox NP [address] [place] [phone] Primary hypertension (CMS/HCC) (Primary Dx); EFRAIN (generalized anxiety disorder) (CMS/HCC); Mixed hyperlipidemia (CMS/HCC) [facility] Comment on above: Primary hypertension (CMS/HCC) (Primary Dx); EFRAIN (generalized anxiety disorder) (CMS/HCC); Mixed hyperlipidemia (CMS/HCC) Start: 11-26-2024 End: 01-24-2026 MG Breast - bilateral Screening Bilateral screening mammogram Imaging Routine Encounter for screening mammogram for malignant neoplasm of breast Expected: 11/26/2024 (Approximate), Expires: 01/24/2026 [facility] Work Phone: Comment on above: Expected: 11/26/2024 (Approximate), Expi res: 01/24/2026 Start: 11-26-2024 End: 11-26-2024 Patient encounter procedure [facility] Comment on above: Primary hypertension (CMS/HCC) (Primary Dx); Encounter for annual wellness visit (AWV) in Medicare patient; EFRAIN (generalized anxiety disorder) (CMS/HCC); Mixed hyperlipidemia (CMS/HCC); Encounter for screening mammogram for malignant neoplasm of breast Start: 10-30-2024 Medicare Annual Wellness (AWV) Medicare Annual Wellness (AWV) [facility] Start: 10-30-2024 Pneumococcal Vaccine: 65+ Years (1 - PCV) Pneumococcal Vaccine: 65+ Years (1 - PCV) [facility] Comment on above: Postponed from 2018 (Patient Refus ed) Start: 10-30-2024 Pneumococcal Vaccine: 65+ Years (1 of 1 - PCV) Pneumococcal Vaccine: 65+ Years (1 of 1 - PCV) [facility] Comment on above: Postponed from 2018 (Patient Refus ed) Start: 10-30-2024 Screening for malignant neoplasm of breast Mammogram [facility] Start: 10-29-2024 End: 10-29-2024 Patient encounter procedure [facility] Comment on above: Arrived Start: 05-12-2024 Influenza vaccination Influenza Vaccine (#1) [facility] Comment on above: Postponed from 07/14/2023 (Patient Refus ed) Start: 04-13-2024 Screening for malignant neoplasm of colon [facility] Start: 02-23-2024 End: 12-25-2024 Alanine aminotransferase [Enzymatic activity/volume] in Serum or Plasma ALT Lab Routine Hypercholesterolemia (CMS/HCC) Expected: 02/23/2024 (Approximate), Expires: 12/25/2024 [facility] Work Phone: Comment on above: Expected: 02/23/2024 (Approximate), Expi res: 12/25/2024 Start: 02-23-2024 End: 12-25-2024 Aspartate aminotransferase [Enzymatic activity/volume] in Serum or Plasma AST Lab Routine Hypercholesterolemia (CMS/HCC) Expected: 02/23/2024 (Approximate), Expires: 12/25/2024 [facility] Comment on above: Expected: 02/23/2024 (Approximate), Expi res: 12/25/2024 Start: 02-23-2024 End: 12-25-2024 Lipid 1996 panel - Serum or Plasma Lipid panel Lab Routine Hypercholesterolemia (CMS/HCC) Expected: 02/23/2024 (Approximate), Expires: 12/25/2024 [facility] Comment on above: Expected: 02/23/2024 (Approximate), Expi res: 12/25/2024 Start: 2018 Pneumococcal Vaccine: 65+ Years (1 of 1 - PCV) Pneumococcal Vaccine: 65+ Years (1 of 1 - PCV) [facility] Start: 1955 Screening for malignant neoplasm of colon [facility] Payers Date Payer Category Payer Medicare (Managed Care) [employer] [id number] 2018 Medicare [id number] 1959 Medicare [id number] 1959 Unknown [id number] 1953 Unknown [id number] 1953 Unknown [id number] 1953 Unknown [id number] [id number] 1953 Unknown [id number] [id number] 1953 Unknown [id number] [id number] 1953 Unknown [id number] [id number] 1953 Unknown [id number] [id number] 1953 Unknown [id number] [id number] 1953 Unknown [id number] Unknown [facility] [id number] Social History Date Type Detail Facility Start: 10-30-2023 Tobacco smoking stat [facility] Ex-smoker [facility] History of tobacco use Current smoker [facility] History of tobacco use Cigarette Smoker [facility] Start: 10-30-2023 End: 11-19-2024 Cigarettes smoked current (pack per day) - Reported 1 [facility] Start: 10-30-2023 Tobacco use and exposure Smoke less tobacco non-user [facility] Start: 10-30-2023 End: 05-20-2025 Alcohol intake Current drinker of alcohol (finding) [facility] Start: 10-23-2023 End: 11-19-2024 Humiliation, Afraid, Rape, and Kick questionnaire [HARK] [facility] Within the last year , have you been afraid of your partner or ex-partner? No [facility] Are you now , , , , never or living with a partner? [facility] How often to you hav e a drink containing alcohol? Monthly or less [facility] How many standard dr inks containing alcohol do you have on a typical day? Patient does not drink [facility] How often do you hav e 6 or more drinks on 1 occasion? Never [facility] How hard is it for y ou to pay for the very basics like food, housing, medical care, and heating Not very hard [facility] Do you feel stress - tense, restless, nervous, or anxious, or unable to sleep at night because your mind is troubled all the time - these days [OSQ] Not at all [facility] (I/We) worried david er (my/our) food would run out before (I/we) got money to buy more. Never true [facility] Start: 10-30-2023 Alcohol Comment coffee:2cups daily [facility] Start: 1955 Sex Assigned At Not on file [facility] How often to you hav e a drink containing alcohol? 4 or more times a week [facility] How many standard dr inks containing alcohol do you have on a typical day? 1 or 2 [facility] How often do you hav e 6 or more drinks on 1 occasion? Less than monthly [facility] Do you feel stress - tense, restless, nervous, or anxious, or unable to sleep at night because your mind is troubled all the time - these days [OSQ] Very much [facility] Work Phone: Sex Female (finding) [facility] Start: 1955 Sex Assigned At Female F [facility] Clinical Notes 07-30-2024 to 05-20-2025 Roxie Knox, LAUREN - 05/20/2025 9:20 AM Sheryl Knox, LAUREN - 05/20/2025 6:02 AM Sheryl Knox, LAUREN - 05/20/2025 6:01 AM Sheryl Knox, LAUREN - 05/20/2025 6:00 AM EDTPatient Instructions Note Date & Type Note Facility 05-20-2025 History of Presen t illness Narrative Images from the original note were not included. Beatrice James is a 69 y.o. female presents with chief complaint of EFRAIN HPI: Hypertension This is a chronic problem. The current episode started more than 1 year ago. The problem is unchanged. The problem is controlled. Associated symptoms include anxiety. Pertinent negatives include no chest pain, headaches, neck pain, palpitations, peripheral edema or shortness of breath. There are no associated agents to hypertension. Risk factors for coronary artery disease include dyslipidemia. Past treatments include angiotensin blockers. The current treatment provides significant improvement. There are no compliance problems. There is no history of CAD/WV, heart failure or PVD. Anxiety Presents for follow-up visit. Symptoms include excessive worry and nervous/anxious behavior. Patient reports no chest pain, depressed mood, dizziness, insomnia, irritability, nausea, palpitations, shortness of breath or suicidal ideas. The severity of symptoms is mild. The quality of sleep is good. Nighttime awakenings: occasional. Compliance with medications is 76-100%. SUBJECTIVE: MEDICATIONS: Current Outpatient Medications Medication Instructions ascorbic acid (VITAMIN C) 500 mg, Daily aspirin 325 mg, Daily cholecalciferol (VITAMIN D-3) 1,000 Units, Daily escitalopram (LEXAPRO) 10 mg, Oral, Daily ezetimibe (ZETIA) 10 mg, Oral, Daily lansoprazole (PREVACID) 15 mg, Daily before breakfast telmisartan (MICARDIS) 40 mg, Oral, Daily, Take 1 tablet (40 mg) by mouth in the morning. ALLERGIES: Allergies Allergen Reactions Irbesartan Cough Zoloft [Sertraline] Cough REVIEW OF SYMPTOMS: Review of Systems Constitutional: Negative for appetite change, chills, fever and irritability. HENT: Negative for congestion, ear pain and sore throat. Eyes: Negative for pain, discharge, redness and visual disturbance. Respiratory: Negative for cough, shortness of breath and wheezing. Cardiovascular: Negative for chest pain, palpitations and leg swelling. Gastrointestinal: Negative for abdominal pain, blood in stool, constipation, diarrhea, nausea and vomiting. Genitourinary: Negative for difficulty urinating, dysuria and frequency. Musculoskeletal: Negative for arthralgias, back pain, joint swelling, myalgias and neck pain. Skin: Negative for rash and wound. Neurological: Negative for dizziness, tremors, seizures, syncope and headaches. Psychiatric/Behavioral: Negative for behavioral problems, self-injury and suicidal ideas. The patient is nervous/anxious. The patient does not have insomnia. Hematological: Does not bruise/bleed easily. Endocrine: Negative for polydipsia, polyphagia and polyuria. Allergic/Immunologic: Negative for environmental allergies and food allergies. PAST MEDICAL HISTORY Past Medical History: Diagnosis Date Broken wrist DDD (degenerative disc disease), lumbar 10/30/2023 Encounter for annual wellness visit (AWV) in Medicare patient 10/30/2023 Ganglion cyst of finger of left hand 10/30/2023 History of shingles HTN (hypertension) Hypercholesterolemia Past Surgical History: Procedure Laterality Date COLONOSCOPY TONSILLECTOMY TUBAL LIGATION WRIST SURGERY broken wrist family history includes Cancer in her mother. OBJECTIVE: Visit Vitals BP 140/76 (BP Location: Left arm, Patient Position: Sitting, BP Cuff Size: Adult long) Pulse 76 Temp 98.5 F (Temporal) Resp 18 Wt 173 lb 9.6 oz SpO2 98% BMI 26.40 kg/m Smoking Status Former BSA 1.94 m Physical Exam Vitals and nursing note reviewed. Constitutional: General: She is not in acute distress. Appearance: Normal appearance. HENT: Head: Normocephalic and atraumatic. Right Ear: External ear normal. Left Ear: External ear normal. Nose: Nose normal. Mouth/Throat: Mouth: Mucous membranes are moist. Eyes: Extraocular Movements: Extraocular movements intact. Conjunctiva/sclera: Conjunctivae normal. Neck: Vascular: No carotid bruit. Cardiovascular: Rate and Rhythm: Normal rate and regular rhythm. Pulses: Normal pulses. Heart sounds: Murmur heard. Pulmonary: Effort: Pulmonary effort is normal. Breath sounds: Normal breath sounds. Abdominal: General: Bowel sounds are normal. There is no distension. Palpations: Abdomen is soft. There is no mass. Tenderness: There is no abdominal tenderness. Musculoskeletal: General: Normal range of motion. Cervical back: Normal range of motion and neck supple. Right lower leg: No edema. Left lower leg: No edema. Skin: General: Skin is warm and dry. Capillary Refill: Capillary refill takes 2 to 3 seconds. Findings: No rash. Neurological: General: No focal deficit present. Mental Status: She is alert and oriented to person, place, and time. Psychiatric: Mood and Affect: Mood normal. Behavior: Behavior normal. Thought Content: Thought content normal. Judgment: Judgment normal. ASSESSMENT AND PLAN: Follow up in about 3 months (around 08/20/2025) for Recheck. Problem List Items Addressed This Visit HTN (hypertension) Please check blood pressure daily and record DASH diet Limit caffeine Take medication as directed Contact office if chest pain, pressure, dizziness, shortness of breath, swelling legs Recommend slow position changes Current meds: telmisartan EFRAIN (generalized anxiety disorder) Current treatment: escitalopram Mixed hyperlipidemia - Primary On ezetimibe therapy Check labs yearly and prn dose changes Associated Problem(s): EFRAIN (generalized anxiety disorder) Current treatment: escitalopram Associated Problem(s): Mixed hyperlipidemia On ezetimibe therapy Check labs yearly and prn dose changes Associated Problem(s): HTN (hypertension) Please check blood pressure daily and record DASH diet Limit caffeine Take medication as directed Contact office if chest pain, pressure, dizziness, shortness of breath, swelling legs Recommend slow position changes Current meds: telmisartan documented in this encounter [facility] 05-20-2025 Instructions Roxie Knox NP - 05/20/2025 9:20 AM EDT Fasting cholesterol: end of May documented in this encounter [facility] 02-17-2025 History of Presen t illness Narrative Images from the original note were not included. Beatrice James is a 69 y.o. female presents with chief complaint of EFRAIN HPI: Hypertension This is a chronic problem. The current episode started more than 1 year ago. The problem is unchanged. The problem is controlled. Associated symptoms include anxiety. Pertinent negatives include no chest pain, headaches, orthopnea, palpitations, peripheral edema or shortness of breath. There are no associated agents to hypertension. Risk factors for coronary artery disease include dyslipidemia and sedentary lifestyle. Past treatments include angiotensin blockers. The current treatment provides significant improvement. There are no compliance problems. Anxiety Presents for follow-up visit. Patient reports no chest pain, depressed mood, dizziness, excessive worry, irritability, nausea, nervous/anxious behavior, palpitations, shortness of breath or suicidal ideas. Symptoms occur occasionally. The severity of symptoms is mild. The quality of sleep is good. Nighttime awakenings: none. Compliance with medications is 76-100%. SUBJECTIVE: MEDICATIONS: Current Outpatient Medications Medication Instructions ascorbic acid (VITAMIN C) 500 mg, Daily aspirin 325 mg, Daily cholecalciferol (VITAMIN D-3) 1,000 Units, Daily escitalopram (LEXAPRO) 10 mg, Oral, Daily ezetimibe (ZETIA) 10 mg, Oral, Daily lansoprazole (PREVACID) 15 mg, Daily before breakfast telmisartan (MICARDIS) 40 mg, Oral, Daily, Take 1 tablet (40 mg) by mouth in the morning. ALLERGIES: Allergies Allergen Reactions Irbesartan Cough Zoloft [Sertraline] Cough REVIEW OF SYMPTOMS: Review of Systems Constitutional: Negative for appetite change, chills, fever and irritability. HENT: Negative for congestion, ear pain and sore throat. Eyes: Negative for pain, discharge, redness and visual disturbance. Respiratory: Negative for cough, shortness of breath and wheezing. Cardiovascular: Negative for chest pain, palpitations, orthopnea and leg swelling. Gastrointestinal: Negative for abdominal pain, blood in stool, constipation, diarrhea, nausea and vomiting. Genitourinary: Negative for difficulty urinating, dysuria and frequency. Musculoskeletal: Negative for arthralgias, back pain, joint swelling and myalgias. Skin: Negative for rash and wound. Neurological: Negative for dizziness, tremors, seizures, syncope and headaches. Psychiatric/Behavioral: Negative for behavioral problems, self-injury and suicidal ideas. The patient is not nervous/anxious. Hematological: Does not bruise/bleed easily. Endocrine: Negative for polydipsia, polyphagia and polyuria. Allergic/Immunologic: Negative for environmental allergies and food allergies. PAST MEDICAL HISTORY Past Medical History: Diagnosis Date Broken wrist DDD (degenerative disc disease), lumbar 10/30/2023 Encounter for annual wellness visit (AWV) in Medicare patient 10/30/2023 Ganglion cyst of finger of left hand 10/30/2023 History of shingles HTN (hypertension) (CMS/HCC) Hypercholesterolemia (CMS/HCC) Past Surgical History: Procedure Laterality Date COLONOSCOPY TONSILLECTOMY TUBAL LIGATION WRIST SURGERY broken wrist family history includes Cancer in her mother. OBJECTIVE: Visit Vitals BP 126/76 (BP Location: Left arm, Patient Position: Sitting, BP Cuff Size: Adult long) Pulse 89 Temp 97.8 F (Temporal) Resp 18 Wt 174 lb 12.8 oz SpO2 98% BMI 26.58 kg/m Smoking Status Former BSA 1.95 m Physical Exam Vitals and nursing note reviewed. Constitutional: General: She is not in acute distress. Appearance: Normal appearance. HENT: Head: Normocephalic and atraumatic. Right Ear: External ear normal. Left Ear: External ear normal. Nose: Nose normal. Mouth/Throat: Mouth: Mucous membranes are moist. Eyes: Extraocular Movements: Extraocular movements intact. Conjunctiva/sclera: Conjunctivae normal. Neck: Vascular: No carotid bruit. Cardiovascular: Rate and Rhythm: Normal rate and regular rhythm. Pulses: Normal pulses. Heart sounds: Normal heart sounds. Pulmonary: Effort: Pulmonary effort is normal. Breath sounds: Normal breath sounds. No wheezing or rhonchi. Abdominal: General: Bowel sounds are normal. There is no distension. Palpations: Abdomen is soft. There is no mass. Tenderness: There is no abdominal tenderness. Musculoskeletal: General: Normal range of motion. Cervical back: Normal range of motion and neck supple. Right lower leg: No edema. Left lower leg: No edema. Skin: General: Skin is warm and dry. Capillary Refill: Capillary refill takes 2 to 3 seconds. Findings: No rash. Neurological: General: No focal deficit present. Mental Status: She is alert and oriented to person, place, and time. Psychiatric: Mood and Affect: Mood normal. Behavior: Behavior normal. Thought Content: Thought content normal. Judgment: Judgment normal. ASSESSMENT AND PLAN: No follow-ups on file. Problem List Items Addressed This Visit HTN (hypertension) (CMS/HCC) Please check blood pressure daily and record DASH diet Limit caffeine Take medication as directed Contact office if chest pain, pressure, dizziness, shortness of breath, swelling legs Recommend slow position changes Current meds: telmisartan EFRAIN (generalized anxiety disorder) (CMS/HCC) - Primary Is currently taking escitalopram daily Feels pretty good Mixed hyperlipidemia (CMS/HCC) On statin therapy Check labs yearly and prn dose changes Associated Problem(s): Mixed hyperlipidemia (CMS/HCC) On statin therapy Check labs yearly and prn dose changes Associated Problem(s): EFRAIN (generalized anxiety disorder) (CMS/HCC) Is currently taking escitalopram daily Feels pretty good Associated Problem(s): HTN (hypertension) (CMS/HCC) Please check blood pressure daily and record DASH diet Limit caffeine Take medication as directed Contact office if chest pain, pressure, dizziness, shortness of breath, swelling legs Recommend slow position changes Current meds: telmisartan documented in this encounter [facility] 02-17-2025 Instructions Roxie Knox NP - 02/17/2025 9:20 AM EDT No dose changes Cholesterol labs: fasting 8 hours documented in this encounter [facility] 01-06-2025 History of Presen t illness Narrative Pt states the new medication seems to be okay, feels tired. There is some times she gets 12hrs of sleep at night. She has not fallen since taking the buspar. Pt has bruising- right rib and left hand/wrist from falling. Images from the original note were not included. Beatrice James is a 69 y.o. female presents with chief complaint of Anxiety HPI: See notes pt has brought with her about last month of how she has been feeling Lexapro: no SI/HI/hallucinations, not really down or sad. Sleep is about 10 hours Anxiety: no heart palpitations, only time has tremor is when she eats. No dyspnea , no irritation or aggatation Overall is happier on lexapro then the fluoxetine. Stopped buspirone; was falling. Happened 3 times, always at night going to the bathroom: felt like did not have legs, no dizziness, no passing out feeling. Once she stopped buspirone then it stopped SUBJECTIVE: MEDICATIONS: Current Outpatient Medications Medication Instructions ascorbic acid (VITAMIN C) 500 mg, Daily aspirin 325 mg, Daily cholecalciferol (VITAMIN D-3) 1,000 Units, Daily DHEA 50 50 mg, Daily escitalopram (LEXAPRO) 10 mg, Oral, Daily lansoprazole (PREVACID) 15 mg, Daily before breakfast telmisartan (MICARDIS) 40 mg, Oral, Daily, Take 1 tablet (40 mg) by mouth in the morning. ALLERGIES: Allergies Allergen Reactions Irbesartan Cough Zoloft [Sertraline] Cough REVIEW OF SYMPTOMS: Review of Systems Constitutional: Negative for appetite change, chills and fever. HENT: Negative for congestion, ear pain and sore throat. Eyes: Negative for pain, discharge, redness and visual disturbance. Respiratory: Negative for cough, shortness of breath and wheezing. Cardiovascular: Negative for chest pain, palpitations and leg swelling. Gastrointestinal: Negative for abdominal pain, blood in stool, constipation, diarrhea, nausea and vomiting. Genitourinary: Negative for difficulty urinating, dysuria and frequency. Musculoskeletal: Negative for arthralgias, back pain, joint swelling and myalgias. Skin: Negative for rash and wound. Neurological: Negative for dizziness, tremors, seizures, syncope and headaches. Psychiatric/Behavioral: Negative for behavioral problems, self-injury and suicidal ideas. The patient is nervous/anxious. Hematological: Does not bruise/bleed easily. Endocrine: Negative for polydipsia, polyphagia and polyuria. Allergic/Immunologic: Negative for environmental allergies and food allergies. PAST MEDICAL HISTORY Past Medical History: Diagnosis Date Broken wrist DDD (degenerative disc disease), lumbar 10/30/2023 Encounter for annual wellness visit (AWV) in Medicare patient 10/30/2023 Ganglion cyst of finger of left hand 10/30/2023 History of shingles HTN (hypertension) (CMS/HCC) Hypercholesterolemia (CMS/HCC) Past Surgical History: Procedure Laterality Date COLONOSCOPY TONSILLECTOMY TUBAL LIGATION WRIST SURGERY broken wrist family history includes Cancer in her mother. OBJECTIVE: Visit Vitals BP 132/86 (BP Location: Left arm, Patient Position: Sitting, BP Cuff Size: Adult long) Pulse 93 Temp 98.8 F (Temporal) Resp 20 Wt 171 lb 12.8 oz SpO2 98% BMI 26.12 kg/m Smoking Status Former BSA 1.93 m Physical Exam Vitals and nursing note reviewed. Constitutional: General: She is not in acute distress. Appearance: Normal appearance. She is not ill-appearing. HENT: Head: Normocephalic and atraumatic. Right Ear: Tympanic membrane, ear canal and external ear normal. Left Ear: Tympanic membrane, ear canal and external ear normal. Nose: Nose normal. Mouth/Throat: Mouth: Mucous membranes are moist. Pharynx: No oropharyngeal exudate or posterior oropharyngeal erythema. Eyes: Extraocular Movements: Extraocular movements intact. Conjunctiva/sclera: Conjunctivae normal. Pupils: Pupils are equal, round, and reactive to light. Neck: Vascular: No carotid bruit. Cardiovascular: Rate and Rhythm: Normal rate and regular rhythm. Pulses: Normal pulses. Heart sounds: Normal heart sounds. Pulmonary: Effort: Pulmonary effort is normal. Breath sounds: Normal breath sounds. Abdominal: General: Bowel sounds are normal. There is no distension. Palpations: Abdomen is soft. There is no mass. Tenderness: There is no abdominal tenderness. Musculoskeletal: General: Normal range of motion. Cervical back: Normal range of motion and neck supple. Right lower leg: No edema. Left lower leg: No edema. Comments: MMT 5/5 bilat UE/LE Lymphadenopathy: Cervical: No cervical adenopathy. Skin: General: Skin is warm and dry. Capillary Refill: Capillary refill takes 2 to 3 seconds. Findings: No rash. Neurological: General: No focal deficit present. Mental Status: She is alert and oriented to person, place, and time. Cranial Nerves: No cranial nerve deficit. Sensory: No sensory deficit. Gait: Gait normal. Deep Tendon Reflexes: Reflexes normal. Comments: Neg romberg neg ulnar drift Psychiatric: Mood and Affect: Mood normal. Behavior: Behavior normal. Thought Content: Thought content normal. Judgment: Judgment normal. ASSESSMENT AND PLAN: No follow-ups on file. Problem List Items Addressed This Visit HTN (hypertension) (CMS/HCC) Please check blood pressure daily and record DASH diet Limit caffeine Take medication as directed Contact office if chest pain, pressure, dizziness, shortness of breath, swelling legs Recommend slow position changes Current meds: telmisartan Relevant Orders CBC and differential Comprehensive metabolic panel Urinalysis with reflex microscopic (clean catch) Microalbumin / creatinine, urine ratio EFRAIN (generalized anxiety disorder) (CMS/HCC) - Primary Stopped buspar d/t side effects Is current taking escitalopram daily Fu in 6 weeks again to reassure no further ongoing falls etc. Relevant Medications escitalopram (Lexapro) 10 MG tablet Other Relevant Orders TSH T4, free Mixed hyperlipidemia (CMS/HCC) Remain off of cholesterol med Dietary changes Check labs 02/04 Relevant Orders Comprehensive metabolic panel Lipid panel Associated Problem(s): Mixed hyperlipidemia (CMS/HCC) Remain off of cholesterol med Dietary changes Check labs 02/04 Associated Problem(s): EFRAIN (generalized anxiety disorder) (CMS/HCC) Stopped buspar d/t side effects Is current taking escitalopram daily Fu in 6 weeks again to reassure no further ongoing falls etc. Associated Problem(s): HTN (hypertension) ([facility]) Please check blood pressure daily and record DASH diet Limit caffeine Take medication as directed Contact office if chest pain, pressure, dizziness, shortness of breath, swelling legs Recommend slow position changes Current meds: telmisartan documented in this encounter [facility] 01-06-2025 Instructions Roxie Knox NP - 01/06/2025 9:40 AM EST No dose changes to escitalopram Get labs completed fasting documented in this encounter [facility] 11-26-2024 History of Presen t illness Narrative Pt states she has not noticed a change with taking the buspar Images from the original note were not included. Beatrice James is a 69 y.o. female presents with chief complaint of Medicare Annual Wellness Visit Initial and Anxiety HPI: Diet: variety, including dairy Activity: 30 minutes video exercises and bike Mental Health Concerns: anxiety, no depression no memory issues Falls in the last year: no Still driving: yes Do you pay your bills: yes Any hearing problems: no Any Vision problems: wears glasses, eye exam yearly Any Hospitalizations in the last year: none Specialist: eye doctor HCPOA/Living Will:none, hand out given for her to complete from [facility] Concerns: ]; Anxiety Presents for follow-up visit. Symptoms include chest pain, excessive worry, irritability, muscle tension and nervous/anxious behavior. Patient reports no depressed mood, dizziness, nausea, palpitations, restlessness, shortness of breath or suicidal ideas. Symptoms occur most days. The severity of symptoms is moderate. Compliance with medications is 76-100%. SUBJECTIVE: MEDICATIONS: Current Outpatient Medications Medication Instructions ascorbic acid (VITAMIN C) 500 mg, Oral, Daily aspirin 325 mg, Oral, Daily busPIRone (BUSPAR) 5 mg, Oral, 2 times daily cholecalciferol (VITAMIN D-3) 1,000 Units, Oral, Daily DHEA 50 50 mg, Oral, Daily escitalopram (LEXAPRO) 10 mg, Oral, Daily FLUoxetine (PROZAC) 20 mg, Oral, Daily lansoprazole (PREVACID) 15 mg, Oral, Daily before breakfast, Do not crush or chew. telmisartan (MICARDIS) 40 mg, Oral, Daily, Take 1 tablet (40 mg) by mouth in the morning. ALLERGIES: Allergies Allergen Reactions Irbesartan Cough Zoloft [Sertraline] Cough REVIEW OF SYMPTOMS: Review of Systems Constitutional: Positive for irritability. Negative for appetite change, chills and fever. HENT: Negative for congestion, ear pain and sore throat. Eyes: Negative for pain, discharge, redness and visual disturbance. Respiratory: Negative for cough, shortness of breath and wheezing. Cardiovascular: Positive for chest pain. Negative for palpitations and leg swelling. Gastrointestinal: Negative for abdominal pain, blood in stool, constipation, diarrhea, nausea and vomiting. Genitourinary: Negative for difficulty urinating, dysuria and frequency. Musculoskeletal: Negative for arthralgias, back pain, joint swelling and myalgias. Skin: Negative for rash and wound. Neurological: Negative for dizziness, tremors, seizures, syncope and headaches. Psychiatric/Behavioral: Negative for behavioral problems, self-injury and suicidal ideas. The patient is nervous/anxious. Hematological: Does not bruise/bleed easily. Endocrine: Negative for polydipsia, polyphagia and polyuria. Allergic/Immunologic: Negative for environmental allergies and food allergies. PAST MEDICAL HISTORY Past Medical History: Diagnosis Date Broken wrist DDD (degenerative disc disease), lumbar 10/30/2023 Encounter for annual wellness visit (AWV) in Medicare patient 10/30/2023 Ganglion cyst of finger of left hand 10/30/2023 History of shingles HTN (hypertension) (CMS/HCC) Hypercholesterolemia (CMS/HCC) Past Surgical History: Procedure Laterality Date COLONOSCOPY TONSILLECTOMY TUBAL LIGATION WRIST SURGERY broken wrist family history includes Cancer in her mother. OBJECTIVE: Visit Vitals BP 130/78 (BP Location: Left arm, Patient Position: Sitting, BP Cuff Size: Adult long) Pulse 73 Temp 98.5 F (Temporal) Resp 18 Ht 5' 8 Wt 170 lb 3.2 oz SpO2 99% BMI 25.88 kg/m Smoking Status Former BSA 1.92 m Physical Exam Vitals and nursing note reviewed. Constitutional: General: She is not in acute distress. Appearance: Normal appearance. HENT: Head: Normocephalic and atraumatic. Right Ear: External ear normal. Left Ear: External ear normal. Nose: Nose normal. Mouth/Throat: Mouth: Mucous membranes are moist. Eyes: Extraocular Movements: Extraocular movements intact. Conjunctiva/sclera: Conjunctivae normal. Neck: Vascular: No carotid bruit. Cardiovascular: Rate and Rhythm: Normal rate and regular rhythm. Pulses: Normal pulses. Heart sounds: Normal heart sounds. Pulmonary: Effort: Pulmonary effort is normal. Breath sounds: Normal breath sounds. No wheezing or rales. Abdominal: General: Bowel sounds are normal. There is no distension. Palpations: Abdomen is soft. There is no mass. Tenderness: There is no abdominal tenderness. Musculoskeletal: General: Normal range of motion. Cervical back: Normal range of motion and neck supple. Right lower leg: No edema. Left lower leg: No edema. Skin: General: Skin is warm and dry. Capillary Refill: Capillary refill takes 2 to 3 seconds. Findings: No rash. Neurological: General: No focal deficit present. Mental Status: She is alert and oriented to person, place, and time. Psychiatric: Mood and Affect: Mood normal. Behavior: Behavior normal. Thought Content: Thought content normal. Judgment: Judgment normal. ASSESSMENT AND PLAN: No follow-ups on file. Problem List Items Addressed This Visit HTN (hypertension) ([facility]) Please check blood pressure daily and record DASH diet Limit caffeine Take medication as directed Contact office if chest pain, pressure, dizziness, shortness of breath, swelling legs Recommend slow position changes Current meds: telmisartan Relevant Medications telmisartan (MIcarDIS) 40 MG tablet Encounter for annual wellness visit (AWV) in Medicare patient - Primary .Reviewed Ht/Wt/BMI Recommend eye exam yearly Recommend dental exams twice a year Balance work/leisure activities Exercises is recommended most days of the week (appropriate as chronic conditions allow) Follow up yearly and prn EFRAIN (generalized anxiety disorder) (CMS/[facility]) PHQ 9 score = 4 EFRAIN 7 [...] Please contact the office if these occur. Mixed hyperlipidemia (CMS/HCC) Remain off of cholesterol med Dietary changes Check labs 02/04 Encounter for screening mammogram for malignant neoplasm of breast Relevant Orders Bilateral screening mammogram Associated Problem(s): Mixed hyperlipidemia (CMS/HCC) Remain off of cholesterol med Dietary changes Check labs 02/04 Associated Problem(s): EFRAIN (generalized anxiety disorder) (CMS/HCC) PHQ 9 score = 4 EFRAIN 7 [...] Please contact the office if these occur. Associated Problem(s): Encounter for annual wellness visit (AWV) in Medicare patient .Reviewed Ht/Wt/BMI Recommend eye exam yearly Recommend dental exams twice a year Balance work/leisure activities Exercises is recommended most days of the week (appropriate as chronic conditions allow) Follow up yearly and prn Associated Problem(s): HTN (hypertension) (CMS/HCC) Please check blood pressure daily and record DASH diet Limit caffeine Take medication as directed Contact office if chest pain, pressure, dizziness, shortness of breath, swelling legs Recommend slow position changes Current meds: telmisartan documented in this encounter [facility] 11-26-2024 Instructions Roxie Knox NP - 11/26/2024 10:00 AM EST Mammogram order will be faxed, they should call, if no call in 2 weeks, call them: [phone]- ext [phone] documented in this encounter [facility] 11-18-2024 Telephone encount er Note Spoke with patient, not a lot better or worse Is willing to trial a new med Stop fluoxetine will trial escitalopram [place] [facility] 11-18-2024 Miscellaneous Notes Formattin g of this note might be different from the original. Spoke with patient, not a lot better or worse Is willing to trial a new med Stop fluoxetine will trial escitalopram [place] documented in this encounter [facility] 10-29-2024 History of Presen t illness Narrative Associated Problem(s): EFRAIN (generalized anxiety disorder) (CMS/HCC) Will increase fluoxetine to 20mg daily Add buspar BID, sent mail order and will call in to [facility] for 2 week supply until mail order comes Fu in 4 weeks, will call her in 2 weeks Discussed stressors and impact they are having, had great response initially until around thanksgiving which is when started getting these worsening in symptoms Relaxation, exercise Pt felt that the prozac was helping for about a month however she is feeling like she did again before taking the medication. Images from the original note were not included. Beatrice James is a 68 y.o. female presents with chief complaint of No chief complaint on file. HPI: Stressors: best friend cancer, son is moving to [place], going to stay with other son for holidays Anxiety Presents for follow-up visit. Symptoms include chest pain, depressed mood, excessive worry, irritability, muscle tension, nervous/anxious behavior, palpitations, panic and shortness of breath. Patient reports no dizziness, nausea or suicidal ideas. Symptoms occur constantly. The severity of symptoms is severe. The quality of sleep is fair. Compliance with medications is 76-100%. SUBJECTIVE: MEDICATIONS: Current Outpatient Medications Medication Instructions ascorbic acid (VITAMIN C) 500 mg, Oral, Daily aspirin 325 mg, Oral, Daily busPIRone (BUSPAR) 5 mg, Oral, 2 times daily cholecalciferol (VITAMIN D-3) 1,000 Units, Oral, Daily DHEA 50 50 mg, Oral, Daily FLUoxetine (PROZAC) 20 mg, Oral, Daily lansoprazole (PREVACID) 15 mg, Oral, Daily before breakfast, Do not crush or chew. telmisartan (MICARDIS) 40 mg, Oral, Daily, Take 1 tablet (40 mg) by mouth in the morning. ALLERGIES: Allergies Allergen Reactions Irbesartan Cough Zoloft [Sertraline] Cough REVIEW OF SYMPTOMS: Review of Systems Constitutional: Positive for irritability. Negative for appetite change, chills and fever. HENT: Negative for congestion, ear pain and sore throat. Eyes: Negative for pain, discharge, redness and visual disturbance. Respiratory: Positive for shortness of breath. Negative for cough and wheezing. Cardiovascular: Positive for chest pain and palpitations. Negative for leg swelling. Gastrointestinal: Negative for abdominal pain, blood in stool, constipation, diarrhea, nausea and vomiting. Genitourinary: Negative for difficulty urinating, dysuria and frequency. Musculoskeletal: Negative for arthralgias, back pain, joint swelling and myalgias. Skin: Negative for rash and wound. Neurological: Negative for dizziness, tremors, seizures, syncope and headaches. Psychiatric/Behavioral: Negative for behavioral problems, self-injury and suicidal ideas. The patient is nervous/anxious. Hematological: Does not bruise/bleed easily. Endocrine: Negative for polydipsia, polyphagia and polyuria. Allergic/Immunologic: Negative for environmental allergies and food allergies. PAST MEDICAL HISTORY Past Medical History: Diagnosis Date Broken wrist DDD (degenerative disc disease), lumbar 10/30/2023 Encounter for annual wellness visit (AWV) in Medicare patient 10/30/2023 Ganglion cyst of finger of left hand 10/30/2023 History of shingles HTN (hypertension) (CMS/HCC) Hypercholesterolemia (CMS/HCC) Past Surgical History: Procedure Laterality Date COLONOSCOPY TONSILLECTOMY TUBAL LIGATION WRIST SURGERY broken wrist family history includes Cancer in her mother. OBJECTIVE: Visit Vitals BP 160/80 (BP Location: Left arm, Patient Position: Sitting, BP Cuff Size: Adult long) Pulse 73 Temp 98.7 F (Temporal) Resp 20 Ht 5' 8 Wt 169 lb 3.2 oz SpO2 100% BMI 25.73 kg/m Smoking Status Former BSA 1.92 m Physical Exam Vitals and nursing note reviewed. Constitutional: General: She is not in acute distress. Appearance: Normal appearance. HENT: Head: Normocephalic and atraumatic. Right Ear: External ear normal. Left Ear: External ear normal. Nose: Nose normal. Mouth/Throat: Mouth: Mucous membranes are moist. Eyes: Extraocular Movements: Extraocular movements intact. Conjunctiva/sclera: Conjunctivae normal. Cardiovascular: Rate and Rhythm: Normal rate and regular rhythm. Pulses: Normal pulses. Heart sounds: Normal heart sounds. Pulmonary: Effort: Pulmonary effort is normal. Breath sounds: Normal breath sounds. Abdominal: General: Bowel sounds are normal. There is no distension. Palpations: Abdomen is soft. There is no mass. Tenderness: There is no abdominal tenderness. Musculoskeletal: General: Normal range of motion. Cervical back: Normal range of motion and neck supple. Skin: General: Skin is warm and dry. Capillary Refill: Capillary refill takes 2 to 3 seconds. Findings: No rash. Neurological: General: No focal deficit present. Mental Status: She is alert and oriented to person, place, and time. Psychiatric: Mood and Affect: Mood normal. Behavior: Behavior normal. Thought Content: Thought content normal. Judgment: Judgment normal. Comments: anxious ASSESSMENT AND PLAN: Follow up in about 4 weeks (around 11/26/2024) for Recheck. Problem List Items Addressed This Visit EFRAIN (generalized anxiety disorder) (CMS/HCC) - Primary Will increase fluoxetine to 20mg daily Add buspar BID, sent mail order and will call in to [facility] for 2 week supply until mail order comes Fu in 4 weeks, will call her in 2 weeks Discussed stressors and impact they are having, had great response initially until around thanksgiving which is when started getting these worsening in symptoms Relaxation, exercise Relevant Medications FLUoxetine (PROzac) 20 MG capsule busPIRone (Buspar) 5 MG tablet documented in this encounter [facility] 10-29-2024 Instructions Roxie Knox NP - 10/29/2024 9:20 AM EST Increase fluoxteine to 20mg (may use 2 10mg pills until mail order comes Add buspirone 5mg every 12 hours for anxiety, I would recommend starting with taking it every 12 hours, then if after a few weeks and if anxiety is better you could see if just taking it as needed basis instead. Would also recommend exercise as a way to help as well documented in this encounter [facility] 07-30-2024 History of Presen t illness Narrative Associated Problem(s): Mixed hyperlipidemia (CMS/HCC) Remain off of cholesterol med Hand out on foods to help lower cholesterol Check labs 02/04 Associated Problem(s): EFRAIN (generalized anxiety disorder) ([facility]/HCC) Will continue with fluoxetine Fu in 3 months Associated Problem(s): HTN (hypertension) ([facility]) Stable at this time no changes to med/doses Prozac / [place] different on 07/04 [place] better, clicking , desires back, happiness. BP this morning was 128/62 Images from the original note were not included. Beatrice James is a 68 y.o. female presents with chief complaint of No chief complaint on file. HPI: Would like to stay off of cholesterol meds for now and see how diet control may work for her Anxiety Presents for follow-up visit. Patient reports no chest pain, depressed mood, dizziness, excessive worry, insomnia, irritability, nausea, nervous/anxious behavior, palpitations, shortness of breath or suicidal ideas. Symptoms occur occasionally. The severity of symptoms is mild. The quality of sleep is good. Nighttime awakenings: none. Compliance with medications is 76-100%. SUBJECTIVE: MEDICATIONS: Current Outpatient Medications Medication Instructions ascorbic acid (VITAMIN C) 500 mg, Oral, Daily aspirin 325 mg, Oral, Daily cholecalciferol (VITAMIN D-3) 1,000 Units, Oral, Daily DHEA 50 50 mg, Oral, Daily FLUoxetine (PROZAC) 10 mg, Oral, Daily lansoprazole (PREVACID) 15 mg, Oral, Daily before breakfast, Do not crush or chew. telmisartan (MICARDIS) 40 mg, Oral, Daily, Take 1 tablet (40 mg) by mouth in the morning. ALLERGIES: Allergies Allergen Reactions Irbesartan Cough Zoloft [Sertraline] Cough REVIEW OF SYMPTOMS: Review of Systems Constitutional: Negative for appetite change, chills, fever and irritability. HENT: Negative for congestion, ear pain and sore throat. Eyes: Negative for pain, discharge, redness and visual disturbance. Respiratory: Negative for cough, shortness of breath and wheezing. Cardiovascular: Negative for chest pain, palpitations and leg swelling. Gastrointestinal: Negative for abdominal pain, blood in stool, constipation, diarrhea, nausea and vomiting. Genitourinary: Negative for difficulty urinating, dysuria and frequency. Musculoskeletal: Negative for arthralgias, back pain, joint swelling and myalgias. Skin: Negative for rash and wound. Neurological: Negative for dizziness, tremors, seizures, syncope and headaches. Psychiatric/Behavioral: Negative for behavioral problems, self-injury and suicidal ideas. The patient is not nervous/anxious and does not have insomnia. Hematological: Does not bruise/bleed easily. Endocrine: Negative for polydipsia, polyphagia and polyuria. Allergic/Immunologic: Negative for environmental allergies and food allergies. PAST MEDICAL HISTORY Past Medical History: Diagnosis Date Broken wrist DDD (degenerative disc disease), lumbar 10/30/2023 Encounter for annual wellness visit (AWV) in Medicare patient 10/30/2023 Ganglion cyst of finger of left hand 10/30/2023 History of shingles HTN (hypertension) (CMS/HCC) Hypercholesterolemia (CMS/HCC) Past Surgical History: Procedure Laterality Date COLONOSCOPY TONSILLECTOMY TUBAL LIGATION WRIST SURGERY broken wrist family history includes Cancer in her mother. OBJECTIVE: Visit Vitals BP 128/76 (BP Location: Left arm, Patient Position: Sitting, BP Cuff Size: Adult long) Pulse 62 Temp 98.7 F (Temporal) Resp 18 Ht 5' 8 Wt 162 lb 6.4 oz SpO2 100% BMI 24.69 kg/m Smoking Status Former BSA 1.88 m Physical Exam Vitals and nursing note reviewed. Constitutional: General: She is not in acute distress. Appearance: Normal appearance. HENT: Head: Normocephalic and atraumatic. Right Ear: External ear normal. Left Ear: External ear normal. Nose: Nose normal. Mouth/Throat: Mouth: Mucous membranes are moist. Eyes: Extraocular Movements: Extraocular movements intact. Conjunctiva/sclera: Conjunctivae normal. Cardiovascular: Rate and Rhythm: Normal rate and regular rhythm. Pulses: Normal pulses. Heart sounds: Normal heart sounds. Pulmonary: Effort: Pulmonary effort is normal. Breath sounds: Normal breath sounds. Abdominal: General: Bowel sounds are normal. There is no distension. Palpations: Abdomen is soft. There is no mass. Tenderness: There is no abdominal tenderness. Musculoskeletal: General: Normal range of motion. Cervical back: Normal range of motion and neck supple. Skin: General: Skin is warm and dry. Capillary Refill: Capillary refill takes 2 to 3 seconds. Findings: No rash. Neurological: General: No focal deficit present. Mental Status: She is alert and oriented to person, place, and time. Psychiatric: Mood and Affect: Mood normal. Behavior: Behavior normal. Thought Content: Thought content normal. Judgment: Judgment normal. ASSESSMENT AND PLAN: No follow-ups on file. Problem List Items Addressed This Visit RESOLVED: Hypercholesterolemia (CMS/HCC) HTN (hypertension) (CMS/HCC) - Primary Stable at this time no changes to med/doses EFRAIN (generalized anxiety disorder) (CMS/HCC) Will continue with fluoxetine Fu in 3 months Relevant Medications FLUoxetine (PROzac) 10 MG capsule Mixed hyperlipidemia (CMS/HCC) Remain off of cholesterol med Hand out on foods to help lower cholesterol Check labs 02/04 Relevant Orders Lipid panel documented in this encounter [facility] note Diagnosis Hypercholesterolemia (CMS/HCC)- Primary Pure hypercholesterolemia [facility]* Diagnosis Hypercholesterolemia (CMS/HCC) Pure hypercholesterolemia [facility] Diagnosis EFRAIN (generalized anxiety disorder) (CMS/HCC)- Primary Generalized anxiety disorder Primary hypertension (CMS/HCC) Unspecified essential hypertension Mixed hyperlipidemia (CMS/HCC) Mixed hyperlipidemia [facility] Diagnosis Encounter for annual wellness visit (AWV) in Medicare patient- Primary Primary hypertension (CMS/HCC) Unspecified essential hypertension Hypercholesterolemia (CMS/HCC) Pure hypercholesterolemia Ganglion cyst of finger of left hand DDD (degenerative disc disease), lumbar Degeneration of lumbar or lumbosacral intervertebral disc Primary hypertension (CMS/HCC)- Primary Unspecified essential hypertension Hypercholesterolemia (CMS/HCC) Pure hypercholesterolemia Colon cancer screening Special screening for malignant neoplasms, colon Hypercholesterolemia (CMS/HCC)- Primary Pure hypercholesterolemia Primary hypertension (CMS/HCC) Unspecified essential hypertension Primary hypertension (CMS/HCC)- Primary Unspecified essential hypertension Hypercholesterolemia (CMS/HCC) Pure hypercholesterolemia EFRAIN (generalized anxiety disorder) (CMS/HCC) Generalized anxiety disorder EFRAIN (generalized anxiety disorder) (CMS/HCC)- Primary Generalized anxiety disorder Primary hypertension (CMS/HCC) Unspecified essential hypertension Mixed hyperlipidemia (CMS/HCC) Mixed hyperlipidemia EFRAIN (generalized anxiety disorder) (CMS/HCC)- Primary Generalized anxiety disorder [facility] Diagnosis Encounter for annual wellness visit (AWV) in Medicare patient- Primary Primary hypertension (CMS/HCC) Unspecified essential hypertension Hypercholesterolemia (CMS/HCC) Pure hypercholesterolemia Ganglion cyst of finger of left hand DDD (degenerative disc disease), lumbar Degeneration of lumbar or lumbosacral intervertebral disc Primary hypertension (CMS/HCC)- Primary Unspecified essential hypertension Hypercholesterolemia (CMS/HCC) Pure hypercholesterolemia Colon cancer screening Special screening for malignant neoplasms, colon Hypercholesterolemia (CMS/HCC)- Primary Pure hypercholesterolemia Primary hypertension (CMS/HCC) Unspecified essential hypertension Primary hypertension (CMS/HCC)- Primary Unspecified essential hypertension Hypercholesterolemia (CMS/HCC) Pure hypercholesterolemia EFRAIN (generalized anxiety disorder) (CMS/HCC) Generalized anxiety disorder EFRAIN (generalized anxiety disorder) (CMS/HCC)- Primary Generalized anxiety disorder Primary hypertension (CMS/HCC) Unspecified essential hypertension Mixed hyperlipidemia (CMS/HCC) Mixed hyperlipidemia EFRAIN (generalized anxiety disorder) (CMS/HCC)- Primary Generalized anxiety disorder EFRAIN (generalized anxiety disorder) (CMS/HCC)- Primary Generalized anxiety disorder [facility] Diagnosis Encounter for annual wellness visit (AWV) in Medicare patient- Primary Primary hypertension (CMS/HCC) Unspecified essential hypertension Hypercholesterolemia (CMS/HCC) Pure hypercholesterolemia Ganglion cyst of finger of left hand DDD (degenerative disc disease), lumbar Degeneration of lumbar or lumbosacral intervertebral disc Primary hypertension (CMS/HCC)- Primary Unspecified essential hypertension Hypercholesterolemia (CMS/HCC) Pure hypercholesterolemia Colon cancer screening Special screening for malignant neoplasms, colon Hypercholesterolemia (CMS/HCC)- Primary Pure hypercholesterolemia Primary hypertension (CMS/HCC) Unspecified essential hypertension Primary hypertension (CMS/HCC)- Primary Unspecified essential hypertension Hypercholesterolemia (CMS/HCC) Pure hypercholesterolemia EFRAIN (generalized anxiety disorder) (CMS/HCC) Generalized anxiety disorder EFRAIN (generalized anxiety disorder) (CMS/HCC)- Primary Generalized anxiety disorder Primary hypertension (CMS/HCC) Unspecified essential hypertension Mixed hyperlipidemia (CMS/HCC) Mixed hyperlipidemia EFRAIN (generalized anxiety disorder) (CMS/HCC)- Primary Generalized anxiety disorder Encounter for annual wellness visit (AWV) in Medicare patient- Primary Primary hypertension (CMS/HCC) Unspecified essential hypertension EFRAIN (generalized anxiety disorder) (CMS/HCC) Generalized anxiety disorder Mixed hyperlipidemia (CMS/HCC) Mixed hyperlipidemia Encounter for screening mammogram for malignant neoplasm of breast documented [facility] Diagnosis Encounter for annual wellness visit (AWV) in Medicare patient- Primary Primary hypertension (CMS/HCC) Unspecified essential hypertension Hypercholesterolemia (CMS/HCC) Pure hypercholesterolemia Ganglion cyst of finger of left hand DDD (degenerative disc disease), lumbar Degeneration of lumbar or lumbosacral intervertebral disc Primary hypertension (CMS/HCC)- Primary Unspecified essential hypertension Hypercholesterolemia (CMS/HCC) Pure hypercholesterolemia Colon cancer screening Special screening for malignant neoplasms, colon Hypercholesterolemia (CMS/HCC)- Primary Pure hypercholesterolemia Primary hypertension (CMS/HCC) Unspecified essential hypertension Primary hypertension (CMS/HCC)- Primary Unspecified essential hypertension Hypercholesterolemia (CMS/HCC) Pure hypercholesterolemia EFRAIN (generalized anxiety disorder) (CMS/HCC) Generalized anxiety disorder EFRAIN (generalized anxiety disorder) (CMS/HCC)- Primary Generalized anxiety disorder Primary hypertension (CMS/HCC) Unspecified essential hypertension Mixed hyperlipidemia (CMS/HCC) Mixed hyperlipidemia EFRAIN (generalized anxiety disorder) (CMS/HCC)- Primary Generalized anxiety disorder Encounter for annual wellness visit (AWV) in Medicare patient- Primary Primary hypertension (CMS/HCC) Unspecified essential hypertension EFRAIN (generalized anxiety disorder) (CMS/HCC) Generalized anxiety disorder Mixed hyperlipidemia (CMS/HCC) Mixed hyperlipidemia Encounter for screening mammogram for malignant neoplasm of breast EFRAIN (generalized anxiety disorder) (CMS/HCC)- Primary Generalized anxiety disorder Primary hypertension (CMS/HCC) Unspecified essential hypertension Mixed hyperlipidemia (CMS/HCC) Mixed hyperlipidemia [facility] Diagnosis Encounter for annual wellness visit (AWV) in Medicare patient- Primary Primary hypertension (CMS/HCC) Unspecified essential hypertension Hypercholesterolemia (CMS/HCC) Pure hypercholesterolemia Ganglion cyst of finger of left hand DDD (degenerative disc disease), lumbar Degeneration of lumbar or lumbosacral intervertebral disc Primary hypertension (CMS/HCC)- Primary Unspecified essential hypertension Hypercholesterolemia (CMS/HCC) Pure hypercholesterolemia Colon cancer screening Special screening for malignant neoplasms, colon Hypercholesterolemia (CMS/HCC)- Primary Pure hypercholesterolemia Primary hypertension (CMS/HCC) Unspecified essential hypertension Primary hypertension (CMS/HCC)- Primary Unspecified essential hypertension Hypercholesterolemia (CMS/HCC) Pure hypercholesterolemia EFRAIN (generalized anxiety disorder) (CMS/HCC) Generalized anxiety disorder EFRAIN (generalized anxiety disorder) (CMS/HCC)- Primary Generalized anxiety disorder Primary hypertension (CMS/HCC) Unspecified essential hypertension Mixed hyperlipidemia (CMS/HCC) Mixed hyperlipidemia EFRAIN (generalized anxiety disorder) (CMS/HCC)- Primary Generalized anxiety disorder Encounter for annual wellness visit (AWV) in Medicare patient- Primary Primary hypertension (CMS/HCC) Unspecified essential hypertension EFRAIN (generalized anxiety disorder) (CMS/HCC) Generalized anxiety disorder Mixed hyperlipidemia (CMS/HCC) Mixed hyperlipidemia Encounter for screening mammogram for malignant neoplasm of breast EFRAIN (generalized anxiety disorder) (CMS/HCC)- Primary Generalized anxiety disorder Primary hypertension (CMS/HCC) Unspecified essential hypertension Mixed hyperlipidemia (CMS/HCC) Mixed hyperlipidemia Mixed hyperlipidemia (CMS/HCC)- Primary Mixed hyperlipidemia [facility] Diagnosis Encounter for annual wellness visit (AWV) in Medicare patient- Primary Primary hypertension (CMS/HCC) Unspecified essential hypertension Hypercholesterolemia (CMS/HCC) Pure hypercholesterolemia Ganglion cyst of finger of left hand DDD (degenerative disc disease), lumbar Degeneration of lumbar or lumbosacral intervertebral disc Primary hypertension (CMS/HCC)- Primary Unspecified essential hypertension Hypercholesterolemia (CMS/HCC) Pure hypercholesterolemia Colon cancer screening Special screening for malignant neoplasms, colon Hypercholesterolemia (CMS/HCC)- Primary Pure hypercholesterolemia Primary hypertension (CMS/HCC) Unspecified essential hypertension Primary hypertension (CMS/HCC)- Primary Unspecified essential hypertension Hypercholesterolemia (CMS/HCC) Pure hypercholesterolemia EFRAIN (generalized anxiety disorder) (CMS/HCC) Generalized anxiety disorder EFRAIN (generalized anxiety disorder) (CMS/HCC)- Primary Generalized anxiety disorder Primary hypertension (CMS/HCC) Unspecified essential hypertension Mixed hyperlipidemia (CMS/HCC) Mixed hyperlipidemia EFRAIN (generalized anxiety disorder) (CMS/HCC)- Primary Generalized anxiety disorder Encounter for annual wellness visit (AWV) in Medicare patient- Primary Primary hypertension (CMS/HCC) Unspecified essential hypertension EFRAIN (generalized anxiety disorder) (CMS/HCC) Generalized anxiety disorder Mixed hyperlipidemia (CMS/HCC) Mixed hyperlipidemia Encounter for screening mammogram for malignant neoplasm of breast EFRAIN (generalized anxiety disorder) (CMS/HCC)- Primary Generalized anxiety disorder Primary hypertension (CMS/HCC) Unspecified essential hypertension Mixed hyperlipidemia (CMS/HCC) Mixed hyperlipidemia UTI symptoms- Primary [facility] Diagnosis Encounter for annual wellness visit (AWV) in Medicare patient- Primary Primary hypertension (CMS/HCC) Unspecified essential hypertension Hypercholesterolemia (CMS/HCC) Pure hypercholesterolemia Ganglion cyst of finger of left hand DDD (degenerative disc disease), lumbar Degeneration of lumbar or lumbosacral intervertebral disc Primary hypertension ([facility]/HCC)- Primary Unspecified essential hypertension Hypercholesterolemia (CMS/HCC) Pure hypercholesterolemia Colon cancer screening Special screening for malignant neoplasms, colon Hypercholesterolemia (CMS/HCC)- Primary Pure hypercholesterolemia Primary hypertension (CMS/HCC) Unspecified essential hypertension Primary hypertension ([facility]/HCC)- Primary Unspecified essential hypertension Hypercholesterolemia ([facility]/HCC) Pure hypercholesterolemia EFRAIN (generalized anxiety disorder) ([facility]/HCC) Generalized anxiety disorder EFRAIN (generalized anxiety disorder) ([facility]/HCC)- Primary Generalized anxiety disorder Primary hypertension ([facility]/HCC) Unspecified essential hypertension Mixed hyperlipidemia (CMS/HCC) Mixed hyperlipidemia EFRAIN (generalized anxiety disorder) ([facility]/HCC)- Primary Generalized anxiety disorder Encounter for annual wellness visit (AWV) in Medicare patient- Primary Primary hypertension (CMS/HCC) Unspecified essential hypertension EFRAIN (generalized anxiety disorder) (CMS/HCC) Generalized anxiety disorder Mixed hyperlipidemia ([facility]/HCC) Mixed hyperlipidemia Encounter for screening mammogram for malignant neoplasm of breast EFRAIN (generalized anxiety disorder) ([facility]/HCC)- Primary Generalized anxiety disorder Primary hypertension ([facility]/HCC) Unspecified essential hypertension Mixed hyperlipidemia (CMS/HCC) Mixed hyperlipidemia EFRAIN (generalized anxiety disorder) ([facility]/HCC)- Primary Generalized anxiety disorder Primary hypertension ([facility]) Unspecified essential hypertension Mixed hyperlipidemia ([facility]/HCC) Mixed hyperlipidemia [facility] Diagnosis Encounter for annual wellness visit (AWV) in Medicare patient- Primary Primary hypertension Unspecified essential hypertension Hypercholesterolemia Pure hypercholesterolemia Ganglion cyst of finger of left hand DDD (degenerative disc disease), lumbar Degeneration of lumbar or lumbosacral intervertebral disc Primary hypertension- Primary Unspecified essential hypertension Hypercholesterolemia Pure hypercholesterolemia Colon cancer screening Special screening for malignant neoplasms, colon Hypercholesterolemia- Primary Pure hypercholesterolemia Primary hypertension Unspecified essential hypertension Primary hypertension- Primary Unspecified essential hypertension Hypercholesterolemia Pure hypercholesterolemia EFRAIN (generalized anxiety disorder) Generalized anxiety disorder EFRAIN (generalized anxiety disorder)- Primary Generalized anxiety disorder Primary hypertension Unspecified essential hypertension Mixed hyperlipidemia Mixed hyperlipidemia EFRAIN (generalized anxiety disorder)- Primary Generalized anxiety disorder Encounter for annual wellness visit (AWV) in Medicare patient- Primary Primary hypertension Unspecified essential hypertension EFRAIN (generalized anxiety disorder) Generalized anxiety disorder Mixed hyperlipidemia Mixed hyperlipidemia Encounter for screening mammogram for malignant neoplasm of breast EFRAIN (generalized anxiety disorder)- Primary Generalized anxiety disorder Primary hypertension Unspecified essential hypertension Mixed hyperlipidemia Mixed hyperlipidemia EFRAIN (generalized anxiety disorder)- Primary Generalized anxiety disorder Primary hypertension Unspecified essential hypertension Mixed hyperlipidemia Mixed hyperlipidemia EFRAIN (generalized anxiety disorder) Generalized anxiety disorder documented [facility] Diagnosis Encounter for annual wellness visit (AWV) in Medicare patient- Primary Primary hypertension Unspecified essential hypertension Hypercholesterolemia Pure hypercholesterolemia Ganglion cyst of finger of left hand DDD (degenerative disc disease), lumbar Degeneration of lumbar or lumbosacral intervertebral disc Primary hypertension- Primary Unspecified essential hypertension Hypercholesterolemia Pure hypercholesterolemia Colon cancer screening Special screening for malignant neoplasms, colon Hypercholesterolemia- Primary Pure hypercholesterolemia Primary hypertension Unspecified essential hypertension Primary hypertension- Primary Unspecified essential hypertension Hypercholesterolemia Pure hypercholesterolemia EFRAIN (generalized anxiety disorder) Generalized anxiety disorder EFRAIN (generalized anxiety disorder)- Primary Generalized anxiety disorder Primary hypertension Unspecified essential hypertension Mixed hyperlipidemia Mixed hyperlipidemia EFRAIN (generalized anxiety disorder)- Primary Generalized anxiety disorder Encounter for annual wellness visit (AWV) in Medicare patient- Primary Primary hypertension Unspecified essential hypertension EFRAIN (generalized anxiety disorder) Generalized anxiety disorder Mixed hyperlipidemia Mixed hyperlipidemia Encounter for screening mammogram for malignant neoplasm of breast EFRAIN (generalized anxiety disorder)- Primary Generalized anxiety disorder Primary hypertension Unspecified essential hypertension Mixed hyperlipidemia Mixed hyperlipidemia EFRAIN (generalized anxiety disorder)- Primary Generalized anxiety disorder Primary hypertension Unspecified essential hypertension Mixed hyperlipidemia Mixed hyperlipidemia Mixed hyperlipidemia Mixed hyperlipidemia documented in this encounter [facility]* Diagnosis Encounter for annual wellness visit (AWV) in Medicare patient- Primary Primary hypertension Unspecified essential hypertension Hypercholesterolemia Pure hypercholesterolemia Ganglion cyst of finger of left hand DDD (degenerative disc disease), lumbar Degeneration of lumbar or lumbosacral intervertebral disc Primary hypertension- Primary Unspecified essential hypertension Hypercholesterolemia Pure hypercholesterolemia Colon cancer screening Special screening for malignant neoplasms, colon Hypercholesterolemia- Primary Pure hypercholesterolemia Primary hypertension Unspecified essential hypertension Primary hypertension- Primary Unspecified essential hypertension Hypercholesterolemia Pure hypercholesterolemia EFRAIN (generalized anxiety disorder) Generalized anxiety disorder EFRAIN (generalized anxiety disorder)- Primary Generalized anxiety disorder Primary hypertension Unspecified essential hypertension Mixed hyperlipidemia Mixed hyperlipidemia EFRAIN (generalized anxiety disorder)- Primary Generalized anxiety disorder Encounter for annual wellness visit (AWV) in Medicare patient- Primary Primary hypertension Unspecified essential hypertension EFRAIN (generalized anxiety disorder) Generalized anxiety disorder Mixed hyperlipidemia Mixed hyperlipidemia Encounter for screening mammogram for malignant neoplasm of breast EFRAIN (generalized anxiety disorder)- Primary Generalized anxiety disorder Primary hypertension Unspecified essential hypertension Mixed hyperlipidemia Mixed hyperlipidemia EFRAIN (generalized anxiety disorder)- Primary Generalized anxiety disorder Primary hypertension Unspecified essential hypertension Mixed hyperlipidemia Mixed hyperlipidemia Primary hypertension- Primary Unspecified essential hypertension Mixed hyperlipidemia Mixed hyperlipidemia EFRAIN (generalized anxiety disorder) Generalized anxiety disorder documented in this encounter [facility]* Diagnosis Encounter for annual wellness visit (AWV) in Medicare patient- Primary Primary hypertension Unspecified essential hypertension Hypercholesterolemia Pure hypercholesterolemia Ganglion cyst of finger of left hand DDD (degenerative disc disease), lumbar Degeneration of lumbar or lumbosacral intervertebral disc Primary hypertension- Primary Unspecified essential hypertension Hypercholesterolemia Pure hypercholesterolemia Colon cancer screening Special screening for malignant neoplasms, colon Hypercholesterolemia- Primary Pure hypercholesterolemia Primary hypertension Unspecified essential hypertension Primary hypertension- Primary Unspecified essential hypertension Hypercholesterolemia Pure hypercholesterolemia EFRAIN (generalized anxiety disorder) Generalized anxiety disorder EFRAIN (generalized anxiety disorder)- Primary Generalized anxiety disorder Primary hypertension Unspecified essential hypertension Mixed hyperlipidemia Mixed hyperlipidemia EFRAIN (generalized anxiety disorder)- Primary Generalized anxiety disorder Encounter for annual wellness visit (AWV) in Medicare patient- Primary Primary hypertension Unspecified essential hypertension EFRAIN (generalized anxiety disorder) Generalized anxiety disorder Mixed hyperlipidemia Mixed hyperlipidemia Encounter for screening mammogram for malignant neoplasm of breast EFRAIN (generalized anxiety disorder)- Primary Generalized anxiety disorder Primary hypertension Unspecified essential hypertension Mixed hyperlipidemia Mixed hyperlipidemia EFRAIN (generalized anxiety disorder)- Primary Generalized anxiety disorder Primary hypertension Unspecified essential hypertension Mixed hyperlipidemia Mixed hyperlipidemia Primary hypertension- Primary Unspecified essential hypertension Mixed hyperlipidemia Mixed hyperlipidemia EFRAIN (generalized anxiety disorder) Generalized anxiety disorder Primary hypertension Unspecified essential hypertension documented in this encounter [facility]* Diagnosis Encounter for annual wellness visit (AWV) in Medicare patient- Primary Primary hypertension Unspecified essential hypertension Hypercholesterolemia Pure hypercholesterolemia Ganglion cyst of finger of left hand DDD (degenerative disc disease), lumbar Degeneration of lumbar or lumbosacral intervertebral disc Primary hypertension- Primary Unspecified essential hypertension Hypercholesterolemia Pure hypercholesterolemia Colon cancer screening Special screening for malignant neoplasms, colon Hypercholesterolemia- Primary Pure hypercholesterolemia Primary hypertension Unspecified essential hypertension Primary hypertension- Primary Unspecified essential hypertension Hypercholesterolemia Pure hypercholesterolemia EFRAIN (generalized anxiety disorder) Generalized anxiety disorder EFRAIN (generalized anxiety disorder)- Primary Generalized anxiety disorder Primary hypertension Unspecified essential hypertension Mixed hyperlipidemia Mixed hyperlipidemia EFRAIN (generalized anxiety disorder)- Primary Generalized anxiety disorder Encounter for annual wellness visit (AWV) in Medicare patient- Primary Primary hypertension Unspecified essential hypertension EFRAIN (generalized anxiety disorder) Generalized anxiety disorder Mixed hyperlipidemia Mixed hyperlipidemia Encounter for screening mammogram for malignant neoplasm of breast EFRAIN (generalized anxiety disorder)- Primary Generalized anxiety disorder Primary hypertension Unspecified essential hypertension Mixed hyperlipidemia Mixed hyperlipidemia EFRAIN (generalized anxiety disorder)- Primary Generalized anxiety disorder Primary hypertension Unspecified essential hypertension Mixed hyperlipidemia Mixed hyperlipidemia Primary hypertension- Primary Unspecified essential hypertension Mixed hyperlipidemia Mixed hyperlipidemia EFRAIN (generalized anxiety disorder) Generalized anxiety disorder Mixed hyperlipidemia- Primary Mixed hyperlipidemia documented in this encounter [facility]* Diagnosis Onset Date Resolution Status Admit Date EFRAIN (generalized anxiety disorder) acute August 20 9:21am HTN (hypertension) acute Octobe r 2024 9:21am Mixed hyperlipidemia acute Octo aime 2024 9:21am [facility] Work Phone: Reason for referral (narrative)No reason for referral information available[facility] Work Phone: Summary Purpose Family History No Family History Records FoundNo Family History Records Found Advance Directives Advance Directive Response Recorded Date/ Time Advance Directives No July 3:56pm Chief Complaint and Reason for Visit Chief Complaint Admit Date 3M August 20, 2025 9: 21am Reason for Visit Admit Date EFRAIN (generalized anxiety disorder) Octob er 2024 9:21am HTN (hypertension) August 20, 2025 9: 21am Mixed hyperlipidemia August 20, 2025 9 :21am Additional Source Comments INFORMATION SOURCE (unrecogn ized section and content) DATE CREATED AUTHOR 04/08/2021 [facility] DATE CREATED AUTHOR AUTHOR'S ORGANIZ ATION 05/24/2025 [facility] EPIC Care Teams (unrecognized sec tion and content) Chain Sales Representative Relationship Specialty Start Date End Date Roxie Knox NP [address] [place] [address] PCP - Chanell BRISCOE 07/14/23 John Collier MD [address] [place] [address] PCP - General Family Medicine 10/27/23 Roxie Knox NP [address] [place] [address] Nurse Practitioner Family Medicine 07/14/23 Chain Sales Representative Relationship Specialty Start Date End Date Roxie Knox NP [address] [place] [address] PCP - Chanell DC 07/14/23 John Collier MD [address] [place] [address] PCP - General Family Medicine 10/27/23 Roxie Knox NP [address] [place] [address] Nurse Practitioner Family Medicine 07/14/23 Chain Sales Representative Relationship Specialty Start Date End Date Roxie Knox NP [address] [place] [address] PCP - Chanell DC 07/14/23 John Collier MD [address] [place] [address] PCP - General Family Medicine 02/12/24 Roxie Knox NP [address] [place] [address] Nurse Practitioner Family Medicine 07/14/23 Roxie Knox NP [address] [place] [address] Nurse Practitioner Family Medicine 02/12/24 Chain Sales Representative Relationship Specialty Start Date End Date Roxie Knox NP [address] [place] [address] PCP - Chanell BRISCOE 07/14/23 John Collier MD [address] [place] [address] PCP - General Family Medicine 02/12/24 Roxie Knox NP [address] [place] [address] Nurse Practitioner Family Medicine 07/14/23 Roxie Knox NP [address] [place] [address] Nurse Practitioner Family Medicine 02/12/24 Chain Sales Representative Relationship Specialty Start Date End Date Roxie Knox NP [address] [place] [address] PCP - Chanell BRISCOE 07/14/23 John Collier MD [address] [place] [address] PCP - General Family Medicine 02/12/24 Roxie Knox NP [address] [place] [address] Nurse Practitioner Family Medicine 07/14/23 Roxie Knox NP [address] [place] [address] Nurse Practitioner Family Medicine 02/12/24 Chain Sales Representative Relationship Specialty Start Date End Date Roxie Knox NP [address] [place] [address] PCP - Chanell BRISCOE 07/14/23 John Collier MD [address] [place] [address] PCP - General Family Medicine 02/12/24 Roxie Knox NP [address] [place] [address] Nurse Practitioner Family Medicine 07/14/23 Roxie Knox NP [address] [place] [address] Nurse Practitioner Family Medicine 02/12/24 Chain Sales Representative Relationship Specialty Start Date End Date Roxie Knox NP [address] [place] [address] PCP - Chanell BRISCOE 07/14/23 John Collier MD [address] [place] [address] PCP - General Family Medicine 02/12/24 Roxie Knox NP [address] [place] [address] Nurse Practitioner Family Medicine 07/14/23 Roxie Knox NP [address] [place] [address] Nurse Practitioner Family Medicine 02/12/24 Chain Sales Representative Relationship Specialty Start Date End Date Roxie Knox NP [address] [place] [address] PCP - Chanell BRISCOE 07/14/23 John Collier MD [address] [place] [address] PCP - General Family Medicine 02/12/24 Roxie Knox NP [address] [place] [address] Nurse Practitioner Family Medicine 07/14/23 Roxie Knox NP [address] [place] [address] Nurse Practitioner Family Medicine 02/12/24 Chain Sales Representative Relationship Specialty Start Date End Date Roxie Knox NP [address] [place] [address] PCP - Chanell BRISCOE 07/14/23 John Collier MD [address] [place] [address] PCP - General Family Medicine 02/12/24 Roxie Knox NP [address] [place] [address] Nurse Practitioner Family Medicine 07/14/23 Roxie Knox NP [address] [place] [address] Nurse Practitioner Family Medicine 02/12/24 Chain Sales Representative Relationship Specialty Start Date End Date John Collier MD [address] [place] [address] PCP - General Family Medicine 02/12/24 Roxie Knox NP [address] [place] [address] Nurse Practitioner Family Medicine 07/14/23 Roxie Knox NP [address] [place] [address] Nurse Practitioner Family Medicine 02/12/24 Chain Sales Representative Relationship Specialty Start Date End Date John Collier MD [address] [place] [address] PCP - General Family Medicine 02/12/24 Roxie Knox NP [address] [place] [address] Nurse Practitioner Family Medicine 07/14/23 Roxie Knox NP [address] [place] [address] Nurse Practitioner Family Medicine 02/12/24 Chain Sales Representative Relationship Specialty Start Date End Date Roxie Knox NP [address] [place] [address] PCP - Chanell BRISCOE 07/14/23 John Collier MD [address] [place] [address] PCP - General Family Medicine 02/12/24 Roxie Knox NP [address] [place] [address] Nurse Practitioner Family Medicine 07/14/23 Roxie Knox NP [address] [place] [address] Nurse Practitioner Family Medicine 02/12/24 Chain Sales Representative Relationship Specialty Start Date End Date Roxie Knox NP [address] [place] [address] PCP - Chanell BRISCOE 07/14/23 John Collier MD [address] [place] [address] PCP - General Family Medicine 02/12/24 Roxie Knox NP [address] [place] [address] Nurse Practitioner Family Medicine 07/14/23 Roxie Knox NP [address] [place] [address] Nurse Practitioner Family Medicine 02/12/24 Chain Sales Representative Relationship Specialty Start Date End Date Roxie Knox NP [address] [place] [address] PCP - Chanell BRISCOE 07/14/23 John Collier MD [address] [place] [address] PCP - General Family Medicine 02/12/24 Roxie Knox NP [address] [place] [address] Nurse Practitioner Family Medicine 07/14/23 Roxie Knox NP [address] [place] [address] Nurse Practitioner Family Medicine 02/12/24 Chain Sales Representative Relationship Specialty Start Date End Date Roxie Knox NP [address] [place] [address] PCP - Chanell BRISCOE 07/14/23 John Collier MD [address] [place] [address] PCP - General Family Medicine 02/12/24 Roxie Knox NP [address] [place] [address] Nurse Practitioner Family Medicine 07/14/23 Roxie Knox NP [address] [place] [address] Nurse Practitioner Family Medicine 02/12/24 Chain Sales Representative Relationship Specialty Start Date End Date Roxie Knox NP [address] [place] [address] PCP - Chanell BRISCOE 07/14/23 John Collier MD [address] [place] [address] PCP - General Family Medicine 02/12/24 Roxie Knox NP [address] [place] [address] Nurse Practitioner Family Medicine 07/14/23 Roxie Knox NP [address] [place] [address] Nurse Practitioner Family Medicine 02/12/24 Chain Sales Representative Relationship Specialty Start Date End Date Roxie Knox NP [address] [place] [address] PCP - Chanell BRISCOE 07/14/23 John Collier MD [address] [place] [address] PCP - General Family Medicine 02/12/24 Roxie Knox NP [address] [place] [address] Nurse Practitioner Family Medicine 07/14/23 Roxie Knox NP [address] [place] [address] Nurse Practitioner Family Medicine 02/12/24 Chain Sales Representative Relationship Specialty Start Date End Date Roxie Knox NP [address] [place] [address] PCP - Chanell BRISCOE 07/14/23 John Collier MD [address] [place] [address] PCP - General Family Medicine 02/12/24 Roxie Knox NP [address] [place] [address] Nurse Practitioner Family Medicine 07/14/23 Roxie Knox NP [address] [place] [address] Nurse Practitioner Family Medicine 02/12/24 Chain Sales Representative Relationship Specialty Start Date End Date Roxie Knox NP [address] [place] [address] PCP - Chanell BRISCOE 07/14/23 John Collier MD [address] [place] [address] PCP - General Family Medicine 02/12/24 Roxie Knox NP [address] [place] [address] Nurse Practitioner Family Medicine 07/14/23 Roxie Knox NP [address] [place] [address] Nurse Practitioner Family Medicine 02/12/24 Chain Sales Representative Relationship Specialty Start Date End Date Roxie Knox NP [address] [place] [address] PCP - Chanell BRISCOE 07/14/23 John Collier MD [address] [place] [address] PCP - General Family Medicine 02/12/24 Roxie Knox NP [address] [place] [address] Nurse Practitioner Family Medicine 07/14/23 Roxie Knox NP [address] [place] [address] Nurse Practitioner Family Medicine 02/12/24 Chain Sales Representative Relationship Specialty Start Date End Date Roxie Knox NP [address] [place] [address] PCP - Chanell BRISCOE 07/14/23 John Collier MD [address] [place] [address] PCP - General Family Medicine 02/12/24 Roxie Knox NP [address] [place] [address] Nurse Practitioner Family Medicine 07/14/23 Roxie Knox NP [address] [place] [address] Nurse Practitioner Family Medicine 02/12/24 Chain Sales Representative Relationship Specialty Start Date End Date Roxie Knox NP [address] [place] [address] PCP - Chanell BRISCOE 07/14/23 John Collier MD [address] [place] [address] PCP - General Family Medicine 02/12/24 Roxie Knox NP [address] [place] [address] Nurse Practitioner Family Medicine 07/14/23 Roxie Knox NP [address] [place] [address] Nurse Practitioner [facility] 02/12/24 Team Status: Active Member Role Status Dates JEREMIAS Trevino Primary Care Provider Active Team Status: Inactive Member Role Status Dates JEREMIAS Trevino Primary Care Provider Active Start: August 20, 2025 End: August 20, 2025 JEREMIAS Trevino Attending Provider Active Start: August 20, 2025 End: August 20, 2025 Reason for Visit (unrecogniz ed section and content) Reason Onset Date Comments Med Refill 12/26/2023 Reason Comments Medicare Annual Wellness Visit Initial Anxiety Reason Comments Anxiety Reason Comments EFRAIN Reason Comments Med Refill Goals (unrecognized section and content) Goals may be documented in a n alternate section FOR RECORDS PERTAINING TO PATIENTS WHO ARE OR HAVE BEEN ENROLLED IN A CHEMICAL DEPENDENCY/SUBSTANCEABUSE PROGRAM, SOME INFORMATION MAY BE OMITTED. This clinical summary was aggregated from multiple sources. Caution should be exercised in using it in the provision of clinical care. This summary normalizes information from multiple sources, and as a consequence, information in this document may materially change the coding, format and clinical context of patient data. In addition, data may be omitted in some cases. CLINICAL DECISIONS SHOULD BE BASED ON THE PRIMARY CLINICAL RECORDS. [facility]. provides no warranty or guarantee of the accuracy or completeness of information in this document.
--- NOTE | 2025-08-28 09:05 | XR_ITS ---
[facility] [place] [id number] Patient Name: BORIS JAMES MRN: [facility]:[id number] date: 1955 Sex: F Assigned Patient Location: LAB Current Patient Location: LAB Accession/Order Number: [id number] Exam Date: 08/28/2025 09:00 Report Date: 08/28/2025 09:11 At the request of: RUPALI BELTRAN NP Procedure: XR lumbar spine 2-3V LUMBAR SPINE - 2 views COMPARISON: None CLINICAL DATA: Back pain with radiation to the hips, greater on the right. AP and lateral views were obtained. There is osteopenia. No acute compression fractures are identified. There is minimal retrolisthesis of L1 on L2 and L2 on L3. There are a few millimeters anterolisthesis of L4 and L5. Disc space narrowing is visualized at the lumbosacral junction. There is endplate spurring, greatest in the thoracolumbar region. There is lower lumbar facet hypertrophy. The SI joints are intact. There is atherosclerotic plaque at the aorta and iliac arteries. XR/XR lumbar spine 2-3V IMPRESSION: OSTEOPENIA AND DEGENERATIVE CHANGES. Impression dictated by: Stephanie Parker M.D. 08/28/2025 9:11 AM Dictation Location: [place] [address] Electronically authenticated by: [id number] Y Date: 08/28/2025 09:11
[2025-08-28 10:13] LABS: Alanine Aminotransferase 31 U/L (14-59); Aspartate Amino Transferase 27 U/L (15-37); Cholesterol 260 mg/dL (<=200); HDL Cholesterol 114 mg/dL (40-60); Triglycerides 89 mg/dL (<=150); VLDL CHOLESTEROL 17.8 mg/dL
== END 2025-08-28 08:30 | disposition home or self-care (01) ==
LOC: LAB 08:31
PROVIDERS: PCP Nurse Practitioner; Visit Provider Nurse Practitioner
DX: E78.2 Mixed hyperlipidemia (principal); M51.369 Other intervertebral disc degeneration, lumbar region without mention of lumbar back pain or lower extremity pain; M85.88 Other specified disorders of bone density and structure, other site
CPT/HCPCS: 36415; 72100; 80061; 84450; 84460